=== PATIENT | female | born 2005 | race Caucasian/White ===

== ENCOUNTER 2023-09-12 08:55 | Emergency (ER) | payer BC, SELFPAY ==
[2023-09-12 09:00] VITALS: BP 115/67; PULSE 79; RESP 18; TEMP 36.1; O2SAT 98; BMI 21.6
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
[2023-09-12 09:34] VITALS: TEMP 36.6
[2023-09-12] MEDS: 0.9 % SODIUM CHLORIDE 1000 ml 1,000 ML IV (10:09)
[2023-09-12] MEDS: KETOROLAC 30 MG/ML inj IVP (10:10)
[2023-09-12 10:17] LABS: Basophils Percent Auto 0.5 % (0.0-3.0); Eosinophils Percent Auto 0.9 % (0.0-7.0); Hematocrit 41.1 % (33.0-51.0); Hemoglobin* 13.9 gm/dL (12.0-16.0); Lymphocytes Percent Auto 36.7 % (20-44); Mean Corpuscular HGB Conc 34 gm/dL (32-36); Mean Corpuscular Hemoglobin 31 pg (26-34); Mean Corpuscular Volume 92 fL (80-100); Monocytes Percent Auto 5.9 % (0.0-11.0); Platelet Count* 266 K/uL (140-440); RDW Coefficient of Variation % 12.7 % (11.5-15.5); Red Blood Count 4.49 m/uL (4.00-5.20); White Blood Count* 4.41 K/uL (4.50-11.00)
[2023-09-12 10:32] LABS: Albumin* 4.8 g/dL (3.3-5.0)
[2023-09-12 10:33] LABS: Chloride* 99 mmol/L (96-114); Sodium* 140 mmol/L (135-149)
[2023-09-12 10:35] LABS: Anion Gap 17 mEq/L (7-15); Aspartate Amino Transferase* 41 U/L (12-35); Bilirubin Total* 0.4 mg/dL (0.1-1.5); Blood Urea Nitrogen* 19 mg/dL (5-24); Carbon Dioxide* 24 mmol/L (20-32); Creatinine* 0.6 mg/dL (0.6-1.2); Estimated Glomerular Filt Rate 133 ml/min; Total Protein* 7.9 g/dL (6.0-8.3)
[2023-09-12 10:36] LABS: Alanine Aminotransferase* 34 U/L (4-35); Alkaline Phosphatase* 91 U/L (40-150); Calcium* 9.4 mg/dL (8.7-10.8); Glucose* 90 mg/dL (60-115)
[2023-09-12 10:38] LABS: Slide Review Reflex No
[2023-09-12] MEDS: MAG HYDROX/ALUMINUM HYD/SIMETH 30 ML ORAL.SUSP PO (10:53)
[2023-09-12] MEDS: LORazepam 2 MG/ML inj 0.5 MG IVP (10:54)
[2023-09-12 11:26] VITALS: BP 136/93; PULSE 74; RESP 16; TEMP 36.4; O2SAT 98
== END 2023-09-12 11:42 | disposition home or self-care (01) ==
PROVIDERS: Emergency Provider Family Medicine
DX: R20.1 Hypoesthesia of skin (principal)
CPT/HCPCS: 36415; 80048; 80076; 85025; 96374; 96375; 99284; A9270; J1885; J2060; J7030

== ENCOUNTER 2024-11-16 22:48 | Emergency (ER) | payer BC, SELFPAY ==
--- OUTSIDE RECORDS SUMMARY | 2024-11-16 22:50 | XMS_ITS | Clinical Summary ---
Author Organization [employer] [facility] lin Address [address] [place] [address] Care Team Providers Care Milk Route Deliverer Name Role Phone Francesca Colindres MD Primary Care Provider [phone] Allergies No known active allergies Medications promethazine (PHENERGAN) 25 MG tablet TAKE ONE TABLET BY MOUTH EVERY 6 HOURS 1 8 Active SUMAtriptan (IMITREX) 50 MG tablet TAKE 1 TABLET BY MOUTH, MAY REPEAT DOSE IN 2 HOURS NEEDED 3 8 Active lorazepam (ATIVAN) 0.5 MG tablet TAKE 1 TABLET BY MOUTH EVERY DAY NEEDED FOR SEVERE ANXIETY . MAY REPEAT IN 40 MINUTES IF INEFFECTIVE 1 9 Active valACYclovir (VALTREX) 500 MG tablet Take 500 mg by mouth. Active albuterol (VENTOLIN HFA) 90 mcg/actuation inhaler Inhale 90 mcg. Activ e FLOVENT HFA 110 mcg/actuation inhaler INHALE 2 PUFFS BY MOUTH TWO TIMES DAILY 1 9 Active VENTOLIN HFA 90 mcg/actuation inhaler INHALE 2 PUFFS BY MOUTH EVERY 4 HOURS NEEDED COUGH OR DIFFICULTY BREATHING 3 9 Active sertraline (ZOLOFT) 100 MG tablet TAKE 1/2 TABLET BY MOUTH EVERY DAY FOR 4 DAYS THEN TAKE 1 TABLET BY MOUTH EVERY DAY 4 9 Active Social History Tobacco Use Types Packs/Day Years Used Date Smoking Tobacco: Never Smokeless Tobacco: Never Comments No Sex and Gender Information Value Date Recorded Sex Assigned at Not on file Legal Sex Female 4:09 PM EDT Gender Identity Not on file Sexual Orientation Not on file Last Filed Vital Signs Vital Sign Reading Time Taken Comments Blood Pressure 90/60 05/18/2018 4:27 PM EDT Pulse 69 03/09/2019 6:17 PM EDT Temperature 36.2 C (97.1 F) 03/09/2019 6:17 PM EDT Respiratory Rate 14 03/09/2019 6:17 PM EDT Oxygen Saturation 98% 03/09/2019 6:17 PM EDT Inhaled Oxygen Concentration - - Weight 58.2 kg (128 lb 6.4 oz) 03/09/2019 6:17 P M EDT Height - - Body Mass Index - - Plan of Treatment Health Maintenance Due Date Last Done Comments Depression: Screening Annually using PHQ-2/9 in Adults 18 yrs or above (or HM Modifier)([facility]) 2021 Hepatitis C Virus Infection in Adolescents and Adults: Screening (or Modifier) ([facility]) 2021 SDOH Screening Reminder: Annually for all adults ([facility]) 2021 Tobacco Smoking Cessation: i n Adults excluding Women: Behavioral and Pharmacotherapy Interventions ([facility]) 2021 Lipid Screening: Once for Women aged 20 to 45 yrs ([facility]) 2023 Flu Vaccination: Yearly for ages 18mos through 64 years (or Modifier)([facility]) 06/10/2024 11/01/2016, 09/26/2015, 08/26/2009, Additional history exists COVID-19 Vaccine Screening: Initial Series and Booster Status ([facility]) ( - 2023- season) 2024 DTaP/Tdap/Td Vaccines ([facility]) (7 - Td or Tdap) 03/07/2025 03/07/2015, 11/17/2008, 02/19/2005, Additional history exists Zoster/Shingles Vaccine Series Screening: Adults aged 18+ yrs (or HM Modifiers)([facility]) (1 of 2) 2053 11/17/2008, 11/27/2004 Pneumococcal Vaccination Screening: Pts 0-19 & 19-64 yrs of age ([facility]) Aged Out 02/19/2005, 05/22/2004, 03/16/2004, Additional history exists No longer eligible based on patient's age to complete this topic Medical Devices Not on file Insurance [facility] Care Teams Milk Route Deliverer Relationship Specialty Start Date End Date Francesca Colindres MD [address] [place] [id number] PCP - General Adolescent Medicine 05/18/18
--- OUTSIDE RECORDS SUMMARY | 2024-11-16 22:50 | XMS_ITS | Continuity of Care Document ---
Author Name [facility] User [email or web address] Address Unknown Organization Unknown Address Unknown Procedures FILTER APPLIED:Only known Procedures with Onset Date within the last 5 years Procedure Date Procedure Provider Additiona l Information Status ROUTINE VENIPUNCTURE (85258) Completed METABOLIC PANEL TOTAL CA (54689) Completed HEPATIC FUNCTION PANEL (20765) Completed EMERGENCY DEPT VISIT MOD MDM (35448) Completed THER/PROPH/DIAG INJ IV PUSH (47630) Completed TX/PRO/DX INJ NEW DRUG ADDON (56779) Completed COMPLETE CBC W/AUTO DIFF WBC (75010) Completed Encounters FILTER APPLIED:Only known Encounters with Admission Date within the last 5 years Encounter Location Admission Discharge Billing Code Party Plan Sales Consultant Severino [facility] N[facility]stor Haynes
--- OUTSIDE RECORDS SUMMARY | 2024-11-16 22:51 | XMS_ITS | Clinical Summary ---
Author Organization [facility] Address [place], [place] [address] Care Team Providers Care Healthcare Advisory Services Manager Name Role Phone Pcp, No Primary Care Provider Unavailabl e Allergies Active Allergy Reactions Criticality Noted Date Comments Shellfish Derived Vomiting 03/19/2023 Medications dextroamphetami ne-amphetamine (ADDERALL XR) 30 mg Extended-Releas e capsule Take 30 mg by mouth. 4 Active DULoxetine (CYMBALTA) 60 mg Delayed-release capsule Take 60 mg by mouth once daily. 4 Active Advair Diskus 250-50 mcg/dose diskus inhaler INHALE ONE PUFF BY MOUTH TWICE A DAY. RINSE MOUTH AFTER USE. 3 Active albuterol HFA (PRO-AIR; VENTOLIN; PROVENTIL) 90 mcg/actuation inhaler INHALE 1-2 PUFFS BY MOUTH EVERY 4 TO 6 HOURS NEEDED FOR ASTHMA DURING FLARES 3 Active methylPREDNISol one (MEDROL DOSEPAK) 4 mg tabletIndicatio ns:Spasm of thoracic back muscle Take by mouth as instructed per packaging: take all tablets together with breakfast. 21 Tablet 4 Active tiZANidine (ZANAFLEX) 4 mg tabletIndicatio ns:Spasm of thoracic back muscle Take 1 Tablet (4 mg) by mouth every 6 hours if needed for Muscle Spasm. 10 Tablet 4 Active Active Problems No known active problems Immunizations Name Administration Dates Next Due DTaP 11/17/2008, 5,05/22/2004,03/16,01/18/2004 HPV 9 (Gardasil 9) 02/08/2016,12/05/2015 Hepatitis A (Peds) 12/25/2016,12/05/2015 Hepatitis B (Peds) 08/23/2007, 4,2003,11/16 Inactivated Polio Vaccine 11/17/2008,,03/16/2004,01/17 Influenza, IIV4 07/30/2022 MMR 11/17/2008,11/27/2004 Meningococcal Vaccine (Menactra) 03/07/2015 Pneumococcal conj 7-Valent (Prevnar 7) 0 02/19/2005,05/22/2004,03/16/2004,01/17 Tdap 03/07/2015 Varicella Vaccine 11/17/2008,11/27/2004 Social History Tobacco Use Types Packs/Day Years Used Date Smoking Tobacco: Some Days Cigarettes 0.1 4 Started: 2020 Tobacco Cessation:Ready to Q uit: Not Asked; Counseling Given: Not Answered Comments:Smokes cigarettes and vapes once a week for 2 years. Angy Aldrich RN ............................ 03/19/2023 8:16 AM Social Connections Answer Date Recorded Frequency of Communication with Friends and Fami ly Not on file 03/19/2023 Comments No Sex and Gender Information Value Date Recorded Sex Assigned at Not on file Legal Sex Female 10:45 AM CDT Gender Identity Not on file Sexual Orientation Not on file Obstetrics History Para Term AB IAB SAB Ectopic Multiple Livin g Live Births 0 0 0 0 0 0 0 0 0 0 0 Last Filed Vital Signs Vital Sign Reading Time Taken Comments Blood Pressure 111/75 12/30/2023 2:04 PM ENDLESS TRACK VEHICLE MECHANIC Pulse 72 12/30/2023 2:04 PM ENDLESS TRACK VEHICLE MECHANIC Temperature 36.8 C (98.2 F) 12/30/2023 2:04 PM ENDLESS TRACK VEHICLE MECHANIC Respiratory Rate - - Oxygen Saturation 100% 12/30/2023 2:04 PM ENDLESS TRACK VEHICLE MECHANIC Inhaled Oxygen Concentration - - Weight 57.4 kg (126 lb 9.6 oz) 12/30/2023 2:04 P M ENDLESS TRACK VEHICLE MECHANIC Height 166 cm (5' 5.35) 03/19/2023 8:17 AM CDT Body Mass Index - - Plan of Treatment Health Maintenance Due Date Last Done Comments Well Child Check for age 3-20 10/15/2006 Pneumococcal series for age 6-49 (1 of 2 - PCV) 2009 02/19/2005, 05/22/2004, 03/16/2004, Additional history exists Depression screening for age 12+ 2015 HPV series for age 9-26 (3 - 2-dose series) 06/04/2016 02/08/2016, 12/05/2015 HIV for age 15-65 2018 Chlamydia for age 16-24 2019 Hepatitis C screening for age 18-79 2021 BMI (ht and wt on same day) for age 18+ 03/19/2024 03/19/2023 COVID-19 vaccine series ( season) 2024 Influenza for age 9-49 07/11/2024 07/30/2022 Tetanus booster 03/07/2025 03/07/2015 Meningococcal series for age 11-21 Aged Out 03/07/2015 No longer eligible based on patient's age to complete this topic Tdap Completed 03/07/2015 Insurance [facility] [place] [phone] Care Teams Healthcare Advisory Services Manager Relationship Specialty Start Date End Date Pcp, No . PCP - General 08/15/22
[2024-11-16 22:55] VITALS: BP 131/87; PULSE 84; RESP 18; TEMP 37.3; O2SAT 100; BMI 22.3
--- NOTE | 2024-11-16 23:57 | ED_ITS ---
HPI - Arrhythmia/Palpitations General Chief Complaint: Arrhythmia/Palpitations Stated Complaint: High heartrate, chest pain, took propranolol Time Seen by Provider: 11/16/24 23:09 History of Present Illness HPI narrative: This 19-year-old female comes in reporting palpitations and thinking that her heart rate was going fast. She does take Adderall and typically does have some tachycardia with that and usually takes propranolol to attend of those symptoms. Today it seemed worse with her symptoms and she also had some chest discomfort. She states that she has increased pain in her anterior chest when taking a deep breath. She does not report any recent injury event or strenuous activity. There is no report of nausea, vomiting, lightheadedness, shortness of breath, or diaphoresis. Related Data Home Medications ?Medication ?Instructions ?Recorded ?Confirmed Ativan 09/12/23 acyclovir 500mg 09/12/23 dextroamphetamine-amphetamine ER 30 mg PO DAILY 09/12/23 11/16/24 30 mg 24hr capsule,extend release (Adderall XR) montelukast 10 mg tablet 10 mg PO DAILY 09/12/23 11/16/24 (Singulair) duloxetine 30 mg capsule,delayed 30 mg PO DAILY 11/16/24 11/16/24 release (Cymbalta) propranolol 10 mg tablet 10 mg PO Q12H 11/16/24 11/16/24 Previous Rx's ?Medication ?Instructions ?Recorded lorazepam 1 mg tablet 0.5 - 1 mg (0.5 - 1 x 1 mg) PO TID 09/12/23 PRN #10 tabs Allergies Allergy/AdvReac Type Severity Reaction Status Date / Time shellfish Allergy Intermediate Abdominal Uncoded 09/12/23 09:08 Pain Review of Systems Status of ROS: Reports: 10 or more systems reviewed and unremarkable except as noted in History and below Narrative: Constitutional: No fevers, no weight gain or loss. Eyes: No discharge. No vision changes. HENT: No congestion, no sore throat, no ear pain. Cardiovascular: No palpitations. Respiratory: No shortness of breath, no wheezes, no cough. Gastrointestinal: No abdominal pain, no vomiting, no diarrhea. Genitourinary: No dysuria, no hematuria. Musculoskeletal: Normal range of motion. Skin: No rashes, no pruritis. Neurological: No dizziness, weakness, sensory change, speech change. Endo/Heme/Allergies: No bruising or bleeding. No polydipsia. Pysch: no suicidality, no anxiety, no insomnia. All other systems reviewed and are negative. [facility] Social History Smoking Status: Never smoker How often do you have a drink containing alcohol: never AUDIT-C Alcohol total score: 0 Non-prescribed substance use: denies use service: No Exam Narrative: Exam Narrative: Constitutional: Well-developed, well-nourished, no acute distress. HEENT: Normocephalic, atraumatic. Neck: Normal range of motion. Nontender. Supple. Heart: Regular. No murmurs. Normal rate. Intact distal pulses. Lungs: Clear to auscultation. No chest discomfort. No wheezes, rhonchi, or rales. Abdomen: Normal bowel sounds. Nontender. No rebound tenderness. Genitalia: Deferred. Back: No midline tenderness. Normal range of motion. Extremities: Normal range of motion. No injury. Skin: Intact. No rash. Warm. No erythema or pallor. Neurologic: No altered sensation. No weakness. Alert and oriented. Psychiatric: No suicidality. No anxiety or depression. No insomnia. Nursing notes and vitals signs are reviewed. Const: Vital Signs, click to edit/add: Vital Signs - 24 hr 11/16/24 22:55 Temperature 99.1 F Pulse Rate [Pulse Oximeter] 84 Respiratory Rate 18 Blood Pressure [Ri ght Upper Arm] 131/87 Pulse Oximetry 100 Oxygen Delivery Me thod Room Air Course Vital Signs Vital signs: Initial Vital Signs Temperature 99.1 F 11/16/24 22:55 Temperature Source Temporal Artery Scan 11/16/24 22:55 Pulse Rate 84 11/16/24 22:55 Pulse Rhythm Regular 11/16/24 22:55 Respiratory Rate 18 11/16/24 22:55 Blood Pressure 131/87 11/16/24 22:55 Blood Pressure Mean 101 11/16/24 22:55 Pulse Oximetry 100 11/16/24 22:55 Oxygen Delivery Method Room Air 11/16/24 22:55 Vital Signs Temperature 99.1 F 11/16/24 22:55 Pulse Rate 84 11/16/24 22:55 Respiratory Rate 18 11/16/24 22:55 Blood Pressure 131/87 11/16/24 22:55 Pulse Oximetry 100 11/16/24 22:55 Oxygen Delivery Method Room Air 11/16/24 22:55 Temperature 99.1 F 11/16/24 22:55 Pulse Rate 84 11/16/24 22:55 Respiratory Rate 18 11/16/24 22:55 Blood Pressure 131/87 11/16/24 22:55 Pulse Oximetry 100 11/16/24 22:55 Oxygen Delivery Method Room Air 11/16/24 22:55 MDM - Arrhythmia/Palpitations MDM Narrative Medical decision making narrative: This patient comes in reporting tachycardia however she arrives here with normal sinus rhythm. She also had some chest discomfort that is reproduced when taking a deep breath. She does not report any cough or injury event. She did request ultrasound as her mother is a nurse practitioner who mentioned that she might have a spontaneous pneumothorax. I did use bedside ultrasound to see normal pleura on ultrasound exam. Her symptoms are not all suspicious of pneumothorax. Additionally I obtained views of her heart which were reassuring to her. EKG is also normal. The patient is sufficiently reassured and okay to return home. ECG Data Attestation: I personally reviewed and interpreted this ECG as follows: Interpretation: Normal sinus rhythm. Rate is 82 beats per minute. There are no ST or T-wave abnormalities. Discharge Plan Discharge Clinical Impression: Acute chest wall pain Patient Disposition: Home, Self-Care Condition: Stable Additional Instructions: Use [id number] medicines as needed and directed. Follow up with MD return if worsening. Prescriptions: No Action duloxetine [Cymbalta] 30 mg capsule,delayed release(DR/EC) 30 mg PO DAILY propranolol 10 mg tablet 10 mg PO Q12H montelukast [Singulair] 10 mg tablet 10 mg PO DAILY acyclovir 500mg 500 mg dextroamphetamine-amphetamine [Adderall XR] 30 mg capsule,extended release 24hr 30 mg PO DAILY Ativan 0.5 mg Patient Comments: PRN lorazepam 1 mg tablet 0.5 - 1 mg PO TID PRNQty: 10 0RF Follow Up/Referrals: Provider,Not a Local [Primary Care Provider] - Stand Alone [facility]: [facility] Instructions Procedures Ultrasound Other exam #1: Anatomical areas examined: Heart and lungs Indications: Chest discomfort Exam type: focused emergency ultrasound Description/findings: Normal lungs with no sign of pneumothorax. Sternum and ribs are intact. Heart shows normal rate and rhythm with no abnormalities. Impression: Negative exam.
[2024-11-17 00:18] VITALS: BP 117/84; PULSE 75; RESP 17; O2SAT 99
== END 2024-11-17 00:32 | disposition home or self-care (01) ==
PROVIDERS: Emergency Provider Emergency Medicine Emergency Medical Services
DX: R07.89 Other chest pain (principal)
CPT/HCPCS: 76604; 76705; 93005; 93308; 99284

== ENCOUNTER 2025-01-19 16:09 | Emergency (ER) | payer BC, SELFPAY ==
--- OUTSIDE RECORDS SUMMARY | 2025-01-19 16:11 | XMS_ITS | Clinical Summary ---
Author Organization [facility] Address [address] [place] [address] Phone Care Team Providers Care Deli Clerk Name Role Phone Francesca Colindres MD Unavailable [phone] Francesca Colindres MD Primary Care Provider [phone] Francesca Colindres MD Unavailable [phone] Allergies Active Allergy Reactions Criticality Noted Date Comments Shellfish Derived Vomiting 11/25/2024 Medications * This document contains information received from the source organization and may not represent a complete record from that organization. EPINEPHrine (EpiPen) 0.3 mg/0.3 mL injection Dose: 0.3 mg, IM, As Directed, PRN Anaphylaxis, Special Instructions: inject into thigh and call 911, Dispense Quantity: 1 EA, Refills: 1, Entered: 05/28/23 14:35:00 EDT, [id number] 3 Active fluticasone (Flovent HFA) 110 mcg/actuation inhaler Dose Amount: 2 puff, INH, BID, Dispense Quantity: 1 EA, Entered: 06/27/23 18:30:00 EDT, [facility] 3 Active levonorgestrel (Mirena) 52 mg (8 yrs) IUD mg, EA, Intrauteral, 1time, Entered: 10/26/19 19:47:46 EST, 59.3 9 Active LORazepam (Ativan) 0.5 mg tablet See Instructions, Special Instructions: 1 tab PO prn anxiety attack, Entered: 12/31/17 11:52:44 EST 8 Active naloxone (Narcan) 4 mg/0.1 mL nasal spray Dose: 4 mg, Nasal, 1time, Special Instructions: may repeat every 2 to 3 minutes until patient responds, Dispense Quantity: 2 EA, Refills: 0, Entered: 05/28/23 14:33:00 EDT, [id number] 3 Active promethazine (Phenergan) 25 mg tablet Dose: 25 mg, Dose Amount: 1 tab, PO, Q6hr, PRN as needed for nausea/vomiting , Dispense Quantity: 30 tab, Refills: 0, Entered: 03/14/23 11:10:00 EDT, [id number] 3 Active SUMAtriptan (Imitrex) 50 mg tablet See Instructions, PRN migraine, Special Instructions: 1 tab PO, may repeat dose in 2 hours if needed, Dispense Quantity: 18 tab, Refills: 0, Entered: 04/10/23 14:49:00 EDT, [id number] 3 Active fluticasone 50 mcg/spray nasal sprayIndication s:Medication management Administer 1 spray into each nostril 2 times a day. Shake gently. Before first use, prime pump. After use, clean tip and replace cap. 16 g 5 Active valACYclovir 500 mg tabletIndicatio ns:Medication management Take 500 mg = 1 tablet by mouth 1 time each day. 90 tablet 5 02/24/20 25 Active Encounters * This document contains information received from the source organization and may not represent a complete record from that organization. Date Type Department Care Team Description 01/03/2025 Telephone [facility] Met[facility] [address] [place] [address] Amy Simeon, [facility] Referral triage 12/14/2024 3:15 PM EST Telemedicine [facility] [address] [place] [address] Delmy Hahn MD, DMD Impacted third molar tooth (Primary Dx) from Last 3 Months Immunizations Immunization Administration Dates Next Due DTaP 11/17/2008, 5,05/22/2004,03/16,01/18/2004 HPV, Unspecified 07/08/2018,02/08/2016, 6 Hep A, Unspecified 12/25/2016,12/05/2015 Hep B, Adolescent or Pediatric 2003 Hep B, Unspecified 08/23/2004,2003 HiB, unspecified 02/19/2005, 4,03/16/2004,01/17,2003,2003 IPV 11/17/2008, 4,03/17/2004,03/16,01/18/2004 Influenza, Unspecified 10/15/2021,2019,08/25/2019,09/10,09/10/2018,08/16/2018,11/01/2016 ,10/21/2016,09/26/2015,08/20/2012,08/10,09/19/2008,08/24/2007, 6,08/31/2005 MMR 11/17/2008,11/17/2004 Meningococcal ACWY, unspecified 03/06/2022,03/07 Meningococcal B, Unspecified 06/14/2022,03/06/20 22 Moderna SARS-CoV-2 Bivalent Booster 12+ 11/04/2022 Novel [id number] 08/26/2009 Pfizer Purple Cap SARS-CoV-2 10/19/2021,02/16/20 21,01/25/2021 Pneumococcal Conjugate PCV 13 02/19/2005 ,05/22/2004,03/16/2004,01/17 Tdap 03/07/2015 Varicella 11/17/2008,11/27/2004 Social History Tobacco Use Types Packs/Day Years Used Date Smoking Tobacco: Never Assessed Comments Unknown Sex and Gender Information Value Date Recorded Sex Assigned at Not on file Legal Sex Female 8:20 PM EDT Gender Identity Not on file Sexual Orientation Not on file Last Filed Vital Signs Vital Sign Reading Time Taken Comments Blood Pressure 121/76 06/27/2023 5:48 PM EDT Pulse 86 06/27/2023 5:48 PM EDT Temperature - - Respiratory Rate - - Oxygen Saturation 99% 06/27/2023 5:48 PM EDT Inhaled Oxygen Concentration - - Weight 53.4 kg (117 lb 11.6 oz) 05/28/2023 2:08 PM EDT Height 166.3 cm (5' 5.47) 05/28/2023 2:08 PM ED T Body Mass Index 19.31 05/28/2023 2:08 PM EDT Plan of Treatment Health Maintenance Due Date Last Done Comments Varicella Vaccines (2 of 2 - 2-dose childhood series) 02/09/2009 11/17/2008, 11/27/2004 Hepatitis C Screening 2021 COVID-19 Vaccine ( season) 2024 11/04/2022, 10/19/2021, 02/15/2021, Additional history exists Influenza Vaccine (#1) 2024 , 10/15/2021, 08/21/2020, Additional history exists DTaP/Tdap/Td Vaccines (7 - Td or Tdap) 03/07/2025 03/07/2015, 11/17/2008, 02/19/2005, Additional history exists HIB Vaccines Completed 02/19/2005, 05/10, 03/16/2004, Additional history exists Pneumococcal Vaccine: Pediatrics (0 to 5 Years) and At-Risk Patients (6 to 49 Years) Completed 02/19/2005, 02/19/2005, 05/22/2004, Additional history exists Hepatitis B Vaccines Completed 08/23/2007, 08/23/2004, 2003, Additional history exists IPV Vaccines Completed 11/17/2008, 08/10, 03/17/2004, Additional history exists MMR Vaccines Completed 11/17/2008, 11/17/2004 Hepatitis A Vaccines Completed 12/25/2016, 12/05/19 16 HPV Vaccines Completed 07/08/2018, 01/10, 12/05/2015 Meningococcal Vaccine Completed 03/06/2022 , 03/06/2022, 03/07/2015, Additional history exists HIV Screening Completed 05/22/2023, 06/14/2022 Rotavirus Vaccines Aged Out No longer eligible based on patient's age to complete this topic Procedures Procedure Name Priority Date/Time Associated Diagnosis Comments RAPID HIV 1 AND 2 SCREEN Routine 05/22/2023 7:36 PM EDT from Last 3 Months or Most Recently Relevant to Health Maintenance Results * HIV-1/2 Combo Ag/Ab w/ Reflex Confirmation (05/22/2023 7:36 PM EDT) HIV-1/2 Combo Antigen/Antibo dy Non-reacti ve [facility] 05/22/2023 7:36 PM EDT 05/22/2023 7:51 PM EDT us Giselle Torres MD LAB BLOOD ORDERABLES Final Result [facility] [address] [place] [address], from Last 3 Months or Most Recently Relevant to Health Maintenance Insurance [employer] - [facility] [place] [id number] [employer] [place] Care Teams Deli Clerk Relationship Specialty Start Date End Date Francesca Colindres MD [address] [place] [address] PCP - Insurance PCP 03/03/18 Francesca Colindres MD [address] [place] [address] PCP - General 02/24/18 Francesca Colindres MD [address] [place] [address] PCP - Insurance Identified PCP 05/07/24
--- OUTSIDE RECORDS SUMMARY | 2025-01-19 16:11 | XMS_ITS | Clinical Summary ---
Author Organization [email or web address] [facility] Address [address] [place] [address] Care Team Providers Care Auditing Coder Name Role Phone Francesca Colindres MD Primary Care Provider [phone] Allergies No known active allergies Medications promethazine [...] Adults 18 yrs or above (or HM Modifier)([facility]) 2021 Hepatitis C Virus Infection in Adolescents and Adults: Screening (or Modifier) ([facility]) 2021 SDOH Screening Reminder: Annually for all adults ([facility]) 2021 Tobacco Smoking Cessation: i n Adults excluding Women: Behavioral and Pharmacotherapy Interventions ([facility]) 2021 Lipid Screening: Once for Women aged 20 to 45 yrs ([facility]) 2023 Flu Vaccination: Yearly for ages 18mos through 64 years (or Modifier)([facility]) 06/10/2024 11/01/2016, 09/26/2015, 08/26/2009, Additional history exists COVID-19 Vaccine Screening: Initial Series and Booster Status ([facility]) (2023- season) 2024 Cervical Cancer Screenin-65 yrs of age (or Modifier) 2024 Cervical Cancer Screening: Pap every 3 yrs pts age 21-65 2024 Cervical Cancer: Pap Screening with Modifier timing ([facility]) 2024 Cervical Cancer: hrHPV alone or with cotesting Pap for Pts 30-65yrs screening every 5yrs ([facility]) 2024 DTaP/Tdap/Td Vaccines ([facility]) (7 - Td or Tdap) 03/07/2025 03/07/2015, 11/17/2008, 02/19/2005, Additional history exists Zoster/Shingles Vaccine Series Screening: Adults aged 18+ yrs (or HM Modifiers)([facility]) (1 of 2) 2053 11/17/2008, 11/27/2004 Pneumococcal Vaccination Screening: Pts 0-19 & 19-64 yrs of age ([facility]) Aged Out 02/19/2005, 05/22/2004, 03/16/2004, Additional history exists No longer eligible based on patient's age to complete this topic [employer] [id number] [facility] Care Teams Auditing Coder Relationship Specialty Start Date End Date Francesca Colindres MD [address] [place] [address] PCP - General Adolescent Medicine 05/18/18
--- OUTSIDE RECORDS SUMMARY | 2025-01-19 16:11 | XMS_ITS | Clinical Summary ---
Author Organization [facility] Address [address] [place] [address] Phone Care Team Providers Care Shrub Grower Name Role Phone Marine Constantino MD, PhD Unavailable [phone] Francesca Colindres MD Primary Care Provi steve Allergies Active Allergy Reactions Criticality Noted Date Comments Latex, Natural Rubber 02/02/2021 Shellfish Containing Products 2018 Medications Medication Sig Dispensed Refills Start Date End Date Status MULTIVITAMIN ORAL Take by mouth. Act agueda albuterol (VENTOLIN HFA) 90 mcg/actuation inhaler INHALE 2 PUFFS BY MOUTH EVERY 4 HOURS NEEDED COUGH OR DIFFICULTY BREATHING 01/28/2019 Active fluticasone propionate (FLOVENT HFA) 110 mcg/actuation inhaler INHALE 2 PUFFS BY MOUTH TWO TIMES DAILY 02/12/2019 Active LORazepam (ATIVAN) 0.5 MG tablet TAKE 1 TABLET BY MOUTH EVERY DAY NEEDED FOR SEVERE ANXIETY . MAY REPEAT IN 40 MINUTES IF INEFFECTIVE 02/20/2019 Active promethazine (PHENERGAN) 25 MG tablet TAKE ONE TABLET BY MOUTH EVERY 6 HOURS 04/22/2018 Active SUMAtriptan (IMITREX) 50 MG tablet TAKE 1 TABLET BY MOUTH, MAY REPEAT DOSE IN 2 HOURS NEEDED 04/22/2018 Active valACYclovir (VALTREX) 500 MG tablet Take 500 mg by mouth. Active venlafaxine (EFFEXOR) 100 MG tablet Take 125 mg by mouth daily. Active sertraline (ZOLOFT) 100 MG tablet Take 200 mg by mouth daily. 01/16/2021 Active Active Problems Problem Noted Date Diagnosed Date Migraine with aura 02/10/2022 Herpes labialis 02/10/2022 History of panic attacks 01/30/2018 Overview (02/10/2022): Followed by Hortencia Castro, PhD and Brittany Gill MD, per GI note (12/2017). Jena Alejandro for panic attacks. Family history of von Willebrand disease 016 Overview (02/10/2022): Mom: von Willebrand disease diagnosed at 18y, heavy menses, easy bruises, blood type O Exercise-induced asthma 12/05/2015 Hypermetropia, 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 Family History Medical History Relation Comments Hypertension Mother Blindness Neg Hx Glaucoma Neg Hx Macular degeneration Neg Hx Relation Status Comments Mother Social History Tobacco Use Types Packs/Day Years Used Date Smoking Tobacco: Never Smokeless Tobacco: Never Alcohol Use Standard Drinks/Week Comments Yes 0 (1 standard drink = 0.6 oz pur e alcohol) 4-5 shots per week Education Answer Date Recorded Are you interested in more education? Not on landy e 03/07/2023 Are you concerned about learning? Not on file 03/07/2023 No 03/07/2023 No 03/07/2023 Digital Access Answer Date Recorded No 04/06/2023 No 04/06/2023 No 04/06/2023 Reliable internet access at home? Not on file 04/06/2023 Device with a working camera? Not on file Sex and Gender Information Value Date Recorded Sex Assigned at Female 01/12/2020 12:11 AM EST Gender Identity Female 01/12/2020 12:11 AM EST Sexual Orientation Bisexual 01/12/2020 12 :11 AM EST Last Filed Vital Signs Vital Sign Reading Time Taken Comments Blood Pressure 102/64 02/10/2022 2:40 PM EDT Pulse 77 02/10/2022 2:40 PM EDT Temperature 36.4 C (97.6 F) 02/10/2022 2:40 PM EDT Respiratory Rate 18 01/12/2020 10:19 PM EST Oxygen Saturation 97% 02/10/2022 2:40 PM EDT Inhaled Oxygen Concentration - - Weight 61.2 kg (135 lb) 02/02/2021 8:31 PM EDT Height 165.1 cm (5' 5) 02/02/2021 8:31 PM EDT Body Mass Index 22.47 02/02/2021 8:31 PM EDT Plan of Treatment Health Maintenance Due Date Last Done Comments PEDIATRIC ASTHMA CONTROL TEST (ACT) 2007 PNEUMOCOCCAL VACCINES (0-49 years) (1 of 1 - PPSV23) 2009 02/19/2005, 05/22/2004, 03/16/2004, Additional history exists DEPRESSION SCREENING 2015 SMOKING Hx and SMOKELESS TOBACCO SCREENING 2016 CHLAMYDIA SCREENING 2019 ADOLESCENT UNIVERSAL LIPID SCREENING 2020 HEPATITIS C SCREENING 2021 HIV ONE-TIME SCREENING (18-65 YEARS) 2021 INFLUENZA VACCINE (#1) 2024 , 08/21/2020, 08/25/2019, Additional history exists COVID-19 VACCINE ( season) 2024 10/19/2021, 02/15/2021, 01/25/2021 PAP SMEAR 2024 Adult Td,Tdap Booster 03/07/2025 03/07/2015 COMBINED DTaP,Tdap,Td (7 - Td or Tdap) 03/07/2025 03/07/2015, 11/17/2008, 02/19/2005, Additional history exists HIB VACCINES Completed 02/19/2005, 05/10, 03/16/2004, Additional history exists MMR VACCINES Completed 11/17/2008, 11/27/2004 MENINGOCOCCAL VACCINES (ACWY) Aged Out 03/07/2015 No longer eligible based on patient's age to complete this topic HEPATITIS A VACCINES Completed 12/25/2016, 12/05/19 16 HPV VACCINES Completed 07/08/2018, 01/10, 12/05/2015 Medical Devices Not on file Care Teams Shrub Grower Relationship Specialty Start Date End Date Francesca Colindres MD [address] [place] [phone] PCP - General Adolescent Medicine 04/01/19 Marine Constantino MD, PhD [email or web address] 12/03/13 Additional Source Comments The information contained in this document represents components of the legal health record. It is not the complete legal health record.[facility]
--- OUTSIDE RECORDS SUMMARY | 2025-01-19 16:12 | XMS_ITS | Encounter Summary ---
Author Organization [facility] Address [address] [place] [phone] Phone Care Team Providers Care Reactor Operator Name Role Phone Emanuel Aragon MD Primary Care Provider [phone] Encounter Details Date Type Department Care Team (Late st Contact Info) Description 06/18/2017 Conversion Encounter Drs. Alexander Bradley [address] [place] [address], [facility] [address] [place] [address] Emanuel Aragon MD [address] [place] [address] [address] [place] [address] Social History Tobacco Use Types Packs/Day Years Used Date Smoking Tobacco: Never Assessed Comments Unknown Sex and Gender Information Value Date Recorded Sex Assigned at Not on file Legal Sex Female 12:44 PM EST Gender Identity Not on file Sexual Orientation Not on file documented as of this encounter Plan of Treatment Not on file documented as of this encounter Visit Diagnoses Not on filedocumented in this encounter Care Teams Reactor Operator Relationship Specialty Start Date End Date Emanuel Aragon MD [address] [place] [address] [address] [place] [address] PCP - General 05/24/17 12/21/20 documented as of this encounter
--- OUTSIDE RECORDS SUMMARY | 2025-01-19 16:12 | XMS_ITS | Clinical Summary ---
Author Organization [facility] Address [address] [place] [address] Care Team Providers Care Security Sales Consultant Name Role Phone Pcp, No Primary Care [...] Active Problems No known active problems Immunizations Immunization Administration Dates Next Due DTaP 11/17/2008, 5,05/22/2004,03/16,01/18/2004 HPV 9 (Gardasil 9) 02/08/2016,12/05/2015 Hepatitis A (Peds) 12/25/2016,12/05/2015 Hepatitis B (Peds) 08/23/2007, 4,2003,11/16 Inactivated Polio Vaccine 11/17/2008,,03/16/2004,01/17 Influenza, IIV4 07/30/2022 MMR 11/17/2008,11/27/2004 Meningococcal Vaccine (Menactra) 03/07/2015 Pneumococcal conj 7-Valent (Prevnar 7) 0 02/19/2005,05/22/2004,03/16/2004,01/17 Tdap 03/07/2015 Varicella Vaccine 11/17/2008,11/27/2004 Social History Tobacco Use Types Packs/Day Years Used Date Smoking Tobacco: Some Days Cigarettes 0.1 4.2 Started: 2020 Tobacco Cessation:Ready to Q uit: [...] Comments Blood Pressure 111/75 12/30/2023 2:04 PM ZINC FURNACE CHARGER Pulse 72 12/30/2023 2:04 PM ZINC FURNACE CHARGER Temperature 36.8 C (98.2 F) 12/30/2023 2:04 PM ZINC FURNACE CHARGER Respiratory Rate - - Oxygen Saturation 100% 12/30/2023 2:04 PM ZINC FURNACE CHARGER Inhaled Oxygen Concentration - - Weight 57.4 kg (126 lb 9.6 oz) 12/30/2023 2:04 P M ZINC FURNACE CHARGER Height 166 cm (5' 5.35) 03/19/2023 8:17 AM CDT Body Mass Index - - Plan of Treatment Health Maintenance Due Date Last Done Comments Depression screening for age 12+ 2015 HPV series for age 9-26 (3 - 2-dose series) 06/04/2016 02/08/2016, 12/05/2015 HIV for age 15-65 2018 Chlamydia for age 16-24 2019 Hepatitis C screening for age 18-79 2021 Pneumococcal series for age 6-49 (1 of 2 - PCV) 2022 02/19/2005, 05/22/2004, 03/16/2004, Additional history exists BMI (ht and wt on same day) for age 18+ 03/19/2024 03/19/2023 COVID-19 vaccine series ( - 2023- season) 2024 Influenza Vaccine (#1) 2024 07/30/2022 Pap test for age 21-65 2024 Tetanus booster 03/07/2025 03/07/2015 Meningococcal series for age 11-21 Aged Out 03/07/2015 No longer eligible based on patient's age to complete this topic Tdap Completed 03/07/2015 Insurance [facility] Care Teams Security Sales Consultant Relationship Specialty Start Date End Date Pcp, No . PCP - General 08/15/22
--- OUTSIDE RECORDS SUMMARY | 2025-01-19 16:12 | XMS_ITS | Encounter Summary ---
Author Organization [facility] Address [address] [place] [address] Phone Care Team Providers Care Fibreglass Gun Hand Name Role Phone Emanuel Aragon MD Primary Care Provider Encounter Details Date Type Department Care Team (Late st Contact Info) Description 09/22/2017 Conversion Encounter Pediatrics at [facility] @ [address], [address] [place] [address] Marine Constantino MD [address] [facility] [address] [place] [address] Social History Tobacco Use Types Packs/Day Years [...] on filedocumented in this encounter Care Teams Fibreglass Gun Hand Relationship Specialty Start Date End Date Emanuel Aragon MD [address] [place] [address] [address] [place] [address] PCP - General 05/24/17 12/21/20 documented as of this encounter
--- OUTSIDE RECORDS SUMMARY | 2025-01-19 16:12 | XMS_ITS | Encounter Summary ---
Author Organization [facility] Address [address] [facility] [address] [place] [address] Phone Care Team Providers Care Tests Superintendent Name Role Phone Marine Constantino MD, PhD Unavailable [phone] Francesca Colindres MD Primary Care Pro[facility] Encounter Details Date Type Department Care Team ([facility] st Contact Info) Description 04/01/2019 Ophth Exam [facility] Emergency Department [address] [place] [address] Yuval Cool MD [address] [facility] [address] [place] [address] [email or web address] Social History Tobacco Use Types Packs/Day Years Used Date Smoking Tobacco: Never Smokeless Tobacco: Never Alcohol Use Standard Drinks/Week Comments Never 0 (1 standard drink = 0.6 oz pur e alcohol) Sex and Gender Information Value Date Recorded Sex Assigned at Female 01/12/2020 12:11 AM EST Gender Identity Female 01/12/2020 12:11 AM EST Sexual Orientation Bisexual 01/12/2020 12 :11 AM EST documented as of this encounter Plan of Treatment Not on file documented as of this encounter Visit Diagnoses Not on filedocumented in this encounter Additional Health Concerns Infection Onset Date Last Indicated Resolved Time CoV-Risk 02/10/2022 02/10/2022 02/21/2022 1:24 AM EDT documented as of this encounter Care Teams Tests Superintendent Relationship Specialty Start Date End Date Francesca Colindres MD [address] [place] [address] PCP - General Adolescent Medicine 04/01/19 Marine Constantino MD, PhD [email or web address] 12/03/13 documented as of this encounter Additional Source Comments The information contained in this document represents components of the legal health record. It is not the complete legal health record.[facility]
--- OUTSIDE RECORDS SUMMARY | 2025-01-19 16:12 | XMS_ITS | Encounter Summary ---
Author Organization [facility] Address [address] [place] [address] Phone Care Team Providers Care Solar Sales Rep Name Role Phone Francesca Colindres MD Unavailable [phone] Francesca Colindres MD Primary Care Provider [phone] Francesca Colindres MD Unavailable [phone] Reason for Visit * Reason Onset Date Comments Referral triage 01/03/2025 Encounter Details Date Type Department Care Team (Late st Contact Info) Description 01/03/2025 Telephone [facility] Genetics Metabolism [address] [place] [address] Amy Simeon CGC Referral triage Social History Tobacco Use Types Packs/Day Years Used Date Smoking Tobacco: Never Assessed Comments Unknown Sex and Gender Information Value Date Recorded Sex Assigned at Not on file Legal Sex Female 8:20 PM EDT Gender Identity Not on file Sexual Orientation Not on file documented as of this encounter Miscellaneous Notes * Telephone Encounter - Amy Simeon CGC - 01/03/2025 3:58 PM EST Left patient a voicemail on 12/31/24 inquiring about reason for Genetics referral as there is no faxed referral or information in [facility]. Needed to appropriately triage and schedule. Provided my call-back number. Amy Simeon MS, [facility] Licensed Genetic Counselor Division of Genetics & Genomics documented in this encounter Plan of Treatment Not on file documented as of this encounter Visit Diagnoses Not on filedocumented in this encounter Care Teams Solar Sales Rep Relationship Specialty Start Date End Date Francesca Colindres MD [address] [place] [address] PCP - Insurance PCP 03/03/18 Francesca Colindres MD [address] [place] [address] PCP - General 02/24/18 Francesca Colindres MD [address] [place] [address] PCP - Insurance Identified PCP 05/07/24 documented as of this encounter
--- OUTSIDE RECORDS SUMMARY | 2025-01-19 16:12 | XMS_ITS | Encounter Summary ---
Author Organization [facility] Address [address] [facility] [address] [place] [address] Phone Care Team Providers Care Manufacturers Service Representative Name Role Phone Marine Constantino MD, PhD Unavailable [phone] Francesca Colindres MD Primary Care Provi [facility] Encounter Details Date Type Department Care Team ([facility] st Contact Info) Description 04/05/2019 [facility] Encounter [facility] Emergency Department [address] [place] [address] Cuco Steve MD, MPH [address] [place] [address] [email or web address] Social History Tobacco Use Types Packs/Day Years [...] documented as of this encounter Care Teams Manufacturers Service Representative Relationship Specialty Start Date End Date Francesca Colindres MD [address] [place] [phone] PCP - General Adolescent Medicine 04/01/19 Marine Constantino MD, PhD [email or web address] 12/03/13 documented as of this encounter Additional Source Comments The information contained in this document represents components of the legal health record. It is not the complete legal health record.[facility]
--- OUTSIDE RECORDS SUMMARY | 2025-01-19 16:12 | XMS_ITS | Encounter Summary ---
Author Organization [facility] Address [address] [place] [address] Phone Care Team Providers Care Animal Assisted Therapist Name Role Phone Francesca Colindres MD Unavailable [phone] Francesca Colindres MD Primary Care Provider [phone] Francesca Colindres MD Unavailable [phone] Reason for Visit * Consultation (Routine) - Authorized Specialty Diagnoses / Procedures Referred By Dm duncan Referred To Contact Pediatric Plastic Surgery Referral ID Status Reason Start Date Expiration Date V isits Requested Visits Authorized [id number] Authorized 09/21/2024 09/21/2025 6 6 Encounter Details Date Type Department Care Team (Late st Contact Info) Description 12/14/2024 3:15 PM EST Telemedicine [facility] [address] [place] [phone] Delmy Hahn MD, DMD [address] [place] [address] Impacted third molar tooth (Primary Dx) Social History Tobacco Use Types Packs/Day Years Used Date Smoking Tobacco: Never Assessed Comments Unknown Sex and Gender Information Value Date Recorded Sex Assigned at Not on file Legal Sex Female 8:20 PM EDT Gender Identity Not on file Sexual Orientation Not on file documented as of this encounter Progress Notes * Flavia Elaine PA-C - 12/14/2024 3:15 PM EST TELEMEDICINE VISIT Bre Reece is a 19 y.o. female sent by Dr. Clifton for evaluation of her impacted third molars. She presents via telemedicine visit today. She reports 0 out of 10 pain on a pain scale and denies difficulty chewing, swallowing, breathing and opening. She is otherwise well. PAST MEDICAL HISTORY: Migraines, anxiety, depression, asthma (well controlled) PAST SURGICAL HISTORY: None MEDICATIONS: Current Outpatient Medications: EPINEPHrine (EpiPen) 0.3 mg/0.3 mL injection, Dose: 0.3 mg, IM, As Directed, PRN Anaphylaxis, Special Instructions: inject into thigh and call 911, Dispense Quantity: 1 EA, Refills: fluticasone (Flovent HFA) 110 mcg/actuation inhaler, Dose Amount: 2 puff, INH, BID, Dispense LORazepam (Ativan) 0.5 mg tablet, PRN PREVENTATIVE, never used: naloxone (Narcan) 4 mg/0.1 mL nasal spray, Dose: 4 mg, Nasal, 1time, Special Instructions: may repeat every 2 to 3 minutes until patient responds, Dispense Quantity: 2 EA, Refills: 0, Entered: 05/28/23 14:33:00 EDT, [id number], Disp: , Rfl: promethazine (Phenergan) 25 mg tablet, Dose: 25 mg, Dose Amount: 1 tab, PO, Q6hr, PRN as needed fornausea/vomiting SUMAtriptan (Imitrex) 50 mg tablet, See Instructions, PRN migraine, Special Instructions: 1 tab PO,may repeat dose in 2 hours if needed, Dispense Quantity: 18 tab, Refills: 0, Entered: 04/10/23 14:49:00 EDT, [id number], Disp: , Rfl: valACYclovir 500 mg tablet, Take 500 mg = 1 tablet by mouth 1 time each day Cymbalta 90mg daily Adderal EXT 40mg ALLERGIES: Allergies Allergen Reactions Shellfish Derived Vomiting FAMILY HISTORY: Non-contributory SOCIAL HISTORY: Denies tobacco and alcohol use. She is a student at [employer] studying [employer]. REVIEW OF SYSTEMS: She currently denies headache, fever, nausea, vomiting, abdominal pain, cough, wheezing, difficulty breathing. The remainder of the review of systems was negative for all systems. PHYSICAL EXAMINATION: This visit was conducted via telemedicine. On exam Bre Reece is a well-developed, well-nourished female in no apparent distress. She has no evidence of facial asymmetry or fullness and there are no masses or lesions of the skin of the face. Mouth opening is within normal limits. The remainder of the exam is deferred until Bre Reece can be evaluated in clinic. RADIOGRAPHIC EVALUATION: The panoramic radiograph shows the maxillary right third molar (#1) is impacted, the maxillary left third molar (#16) is impacted, the mandibular left third molar (#17) is impacted and the mandibular right third molar (#32) is impacted. There is no associated pathology. ASSESSMENT AND PLAN: A combination of [id number]-[id number] and xzu-pzvw-uy-face time was spent on reviewingthe patient's outside records, obtaining the patient history, counseling and educating the patient/family and documenting the patient's encounter. In addition, radiographs from their referring provider were reviewed with my interpretation described in the note above. We discussed the etiology, prognosis and treatment of the impacted third molars as well as the indications for extraction, the postoperative course and risks including pain, bleeding, infection, swelling, damage to adjacent teeth/bone/gums, numbness to the lower lip/chin/tongue, and oroantral fistula. We also discussed anesthesiaoptions and Bre Reece would like to proceed with extraction of teeth #1, 16, 17, and 32 with local anesthesia +/- nitrous oxide. She will contact the office to schedule at a convenient time. All oftheir questions were answered to their satisfaction. Flavia Elaine PA-C [facility] Department of Plastic and Oral Surgery I personally participated in the history and assessment and plan of this patient. I spent the majority of the visit discussing the treatment plan and associated risks and benefits with the patient and parent. All questions were answered. Flavia Elaine PA-C, wrote the above note and I have reviewed and modified it as necessary to reflect the appropriate findings, assessment, and plan. Delmy Hahn DMD, MD Oral Bshctmg-xy-Bolso [facility] Department of Plastic and Oral Surgery The visit took place via telehealth using video. I was located at [facility] or [facility]. The patient and/or guardian were located at home at the time of this encounter. Patient Consents: Virtual/Telehealth Consent Cosigned by Delmy Hahn MD, DMD at 12/15/2024 10:10 AM EST documented in this encounter Plan of Treatment Scheduled Orders Name Type Priority Associated Diagnoses Orde r Schedule PLS/ORLS In-Clinic Procedure Procedures Routine Impacted third molar tooth Expected: 12/14/2024 (Approximate), Expires: 12/14/2025 documented as of this encounter Visit Diagnoses Diagnosis Impacted third molar tooth- Primary Disturbances in tooth eruption documented in this encounter Care Teams Animal Assisted Therapist Relationship Specialty Start Date End Date Francesca Colindres MD [address] [place] [address] PCP - Insurance PCP 03/03/18 Francesca Colindres MD [address] [place] [address] PCP - General 02/24/18 Francesca Colindres MD [address] [place] [address] PCP - Insurance Identified PCP 05/07/24 documented as of this encounter
--- OUTSIDE RECORDS SUMMARY | 2025-01-19 16:12 | XMS_ITS | Clinical Summary ---
Author Organization [facility] Address [address] [place] [address] Phone Care Team Providers Care Mining Helper Name Role Phone Unavailable Primary Care Provider Unavailabl e Allergies No known active allergies Medications valACYclovir (VALTREX) 500 MG tablet Take 500 mg by mouth. Active albuterol HFA (VENTOLIN HFA) 108 (90 BASE) MCG/ACT inhaler Inhale 90 mcg. Active Active Problems Problem Noted Date Diagnosed Date Constipation 01/30/2018 Overview (01/30/2018): Gastroenterology. Cuate Leon MD, 12/31/2017. Consiptation, LLQ discomfort. Took iron for fatigue, no labs drawn. Feels chronically bloated. May represent IBS. Cleanout recommended with Miralax and bisacodyl. Baseline labs checked. Hgb 13.2 g/dL. Ferritin 35.7 ng/ml. T4, Free, 0.84 ng/dL. TSH 1.05 mcunit/ml. TTG IgA negative (normal total IgA). ESR 8. CRP normal. 25-OH Vit D 23.6 ng/ml Anxiety 01/30/2018 Overview (01/30/2018): Followed by Hortencia Castro, PhD and Brittany Gill MD, per GI note (12/2017). Lexapro, Ativan for panic attacks. History of panic attacks 01/30/2018 Overview (01/30/2018): Followed by Hortencia Castro, PhD and Brittany Gill MD, per GI note (12/2017). Lexapro, Ativan for panic attacks. Disruption of family by separation and divorce 0 01/30/2018 Overview (03/04/2018): Parents: trial separation 11/2017 Mastitis of right breast unr elated to of 11/17/2017 Overview (11/17/2017): Right breast mastitis (10/01/17) see notes resolved completely on diclox Assessment & Plan (11/17/2017 1:41 PM EST): Right breast mastitis (10/01/17) see notes resolved completely on diclox @ this point no indication that is mastitis but will start sxrx and call if inc sx or concerns Family history of von Willebrand disease 016 Overview (02/28/2018): Mom: von Willebrand disease diagnosed at 18y, heavy menses, easy bruises, blood type O Exercise-induced asthma 12/05/2015 Hypermetropia, 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 Astigmatism of both eyes 09/27/2015 H/O cold sores 09/27/2015 Immunizations Immunization Administration Dates Next Due DTaP 11/17/2008, 9,02/19/2005,02/19,05/22/2004,05/22/2004,03/16/2004 ,03/16/2004,01/18/2004,01/18/2004 H1N1 Inj Preservative Free 08/26/2009 HPV Vaccine 9 Valent 02/08/2016,12/05/2015 Hep A, ped/adol 12/25/2016,12/05/2015 Hep B, ped/adol 08/23/2004, 4,2003,12/20,2003,2003 Hib (HbOC) 02/19/2005, 5,05/22/2004,05/22,03/16/2004,03/16/2004,01/18/2004 ,01/18/2004 IPV 11/17/2008, 9,08/23/2004,08/23,03/16/2004,03/16/2004,01/18/2004 ,01/18/2004 Influenza, injectable, quadrivalent 08/26/2009,1 Influenza, injectable, quadr ivalent, preservative free 11/01/2016,09/26/2015 Influenza, injectable, trivalent 009,08/24/2007,10/08/2006,08/31 Influenza, injectable, triva lent, preservative free 10/08/2006,08/31/2005 Influenza, intranasal, quadrivalent 08/20/2012 Influenza, intranasal, trivalent 08/20/2012 MMR 11/17/2008, 9,11/27/2004,11/27 Meningococcal Conj (Menactra) MCV4P 03/07/2015,0 03/07/2015 Pneumococcal Conjugate 02/19/2005,2004,05/22/2004,05/22,03/16/2004,03/16/2004,01/18/2004 ,01/18/2004 Tdap 03/07/2015,03/07/2015 Varicella 11/17/2008, 9,11/27/2004,11/27 Family History Medical History Relation Name Comments Seizures Cousin Other Father Alexander Polyposis, foll owed by Andrew Manuel MD, MEEI Alcoholism Maternal Great-Grandfather Von Willebrand disease Mother von W illebrand disease diagnosed at 18y, heavy menses, easy bruises, blood type O Parkinsonism Paternal Grandfather Relation Name Status Comments Cousin Father Alexander Alive Maternal Great-Grandfather Mother Alive Paternal Grandfather 2017 Paternal Grandmother 2017 Sister 1 Josefina Alive Sister 2 Mireille Alive Social History Tobacco Use Types Packs/Day Years Used Date Smoking Tobacco: Never Assessed Comments Unknown Sex and Gender Information Value Date Recorded Sex Assigned at Not on file Legal Sex Female 12:44 PM EST Gender Identity Not on file Sexual Orientation Not on file Last Filed Vital Signs Vital Sign Reading Time Taken Comments Blood Pressure 108/68 03/30/2017 12:00 AM EDT Pulse 80 12/25/2016 12:00 AM EST Temperature 36.4 C (97.6 F) 11/17/2017 9:27 AM EST Respiratory Rate - - Oxygen Saturation 98% 03/07/2015 12:00 AM EDT Inhaled Oxygen Concentration - - Weight 56.2 kg (124 lb) 11/17/2017 9:27 AM EST Height 162.6 cm (5' 4) 12/25/2016 12:00 AM EST Body Mass Index - - Plan of Treatment Health Maintenance Due Date Last Done Comments HPV Vaccines (3 - 2-dose series) 06/04/2016 02/08/2016, 12/05/2015 Men B Vaccine (1 of 2 - Standard) 2019 Influenza Vaccines (#1) 2024 11/01/20 16, 09/26/2015, 08/20/2012, Additional history exists COVID-19 Vaccine (2023- season) 2024 DTaP,Tdap,and Td Vaccines (8 - Td or Tdap) 03/07/2025 03/07/2015, 03/07/2015, 11/17/2008, Additional history exists Hepatitis B Vaccines Completed 08/23/2004, 08/23/2004, 2003, Additional history exists HIB Vaccines Completed 02/19/2005, 02/08, 05/22/2004, Additional history exists Pneumococcal Vaccine Completed 02/19/2005, 02/19/2005, 05/22/2004, Additional history exists IPV Vaccines Completed 11/17/2008, 06/2009, 08/23/2004, Additional history exists MMR Vaccines Completed 11/17/2008, 06/2009, 11/27/2004, Additional history exists Varicella Vaccines Completed 11/17/2008, 0 11/17/2008, 11/27/2004, Additional history exists Meningococcal Vaccine Aged Out 03/07/2015, 015 No longer eligible based on patient's age to complete this topic Hepatitis A Vaccines Completed 12/25/2016, 12/05/19 16 Insurance [facility]
--- NOTE | 2025-01-19 16:14 | ED_ITS ---
HPI - General Adult General Date Seen: 01/19/25 Chief complaint: Unspecified Complaint, Adult Stated complaint: medication withdrawal symptoms Time Seen by Provider: 01/19/25 16:13 History of Present Illness HPI narrative: 19-year-old female with a history of ADHD, depression, anxiety, presenting to the ER today with concern for withdrawal from Cymbalta. She has a known history of depression anxiety and has been on some version of antidepressants since she was 12 years old. She also has ADHD and takes Adderall for that. Her psychiatrist is in [place], where she is from. 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 She has been on Cymbalta in doing relatively well for the past several months. Being busy with finals, she ran out of her Cymbalta 2 days ago and has not had. For about the past 30 hours or so she has been having symptoms that she attributes to Cymbalta withdrawal. She has been feeling ?brain zaps fairly frequently, also anxiety, tremulousness, insomnia, tearfulness, and brain fog. She says she feels awful. She notes that she is under some stress with finals but says she would otherwise be doing fine during finals, if she were not out of Cymbalta. She has been able to cough contact her pharmacy and does have a refill prescription for Cymbalta available, waiting for her at the pharmacy this afternoon. However, given the severity of her symptoms, she came here to the ER. She says it will probably take several days of getting back on Cymbalta before it really starts to kick in. She says she can not go on feeling like this that long. She denies any other psychosocial stressors. She denies any other drug or alcohol use or abuse. She also has a prescription for Ativan that she uses on a p.r.n. basis for anxiety. She tried taking a dose of Ativan yesterday (0.5 mg p.o.) but it had no significant effect Related Data Home Medications ?Medication ?Instructions ?Recorded ?Confirmed Ativan 09/12/23 acyclovir 500mg 09/12/23 dextroamphetamine-amphetamine ER 30 mg PO DAILY 09/12/23 11/16/24 30 mg 24hr capsule,extend release (Adderall XR) montelukast 10 mg tablet 10 mg PO DAILY 09/12/23 11/16/24 (Singulair) duloxetine 30 mg capsule,delayed 30 mg PO DAILY 11/16/24 11/16/24 release (Cymbalta) propranolol 10 mg tablet 10 mg PO Q12H 11/16/24 11/16/24 duloxetine 60 mg capsule,delayed 60 mg PO DAILY 01/19/25 01/19/25 release Previous Rx's ?Medication ?Instructions ?Recorded lorazepam 1 mg tablet 0.5 - 1 mg (0.5 - 1 x 1 mg) PO TID 09/12/23 PRN #10 tabs Allergies Allergy/AdvReac Type Severity Reaction Status Date / Time shellfish Allergy Intermediate Abdominal Uncoded 09/12/23 09:08 Pain PFSH PFSH Social History Smoking Status: Light tobacco smoker Second hand tobacco smoke exposure: No How often do you have a drink containing alcohol: never AUDIT-C Alcohol total score: 0 Non-prescribed substance use: marijuana (any form) service: No Exam Narrative: Exam Narrative: Constitutional: Appears well-developed and well-nourished. Alert. Upset and tearful, anxious and shaky but overall conversant and able to carry on a conversation. She is definitely intelligent, alert and oriented HENT: Head: Atraumatic. Nose: Nose normal. Mouth/Throat: Oral mucosa is clear and moist. no trismus. Eyes: Conjunctivae injected and red from crying. EOM normal. Pupils equal, round, and reactive to light. No scleral icterus. Neck: Normal range of motion. Neck supple. No tracheal deviation present. Cardiovascular: Normal rate, regular rhythm. No gallop. No friction rub. No murmur heard. Pulmonary/Chest: Effort normal. No stridor. No respiratory distress. No wheezes. No rales. No rhonchi . Musculoskeletal: RUE: Normal range of motion. No tenderness. No deformity LUE: Normal range of motion. No tenderness. No deformity RLE: Normal range of motion. No edema. No tenderness. No deformity LLE: Normal range of motion. No edema. No tenderness. No deformity Lymph: No cervical adenopathy. Neurological: Alert and oriented to person, place, and time. Normal strength. CN II-VII intact. No sensory deficit. GCS eye subscore is 4. GCS verbal subscore is 5. GCS motor subscore is 6. Normal coordination Skin: Skin is warm and dry. No rash noted. Several tattoos. None look fresh or infected. No pallor. Normal capillary refill. Psychiatric: Tearful and shaky endorses anxiety. She is feeling terrible and is worried that there is something seriously wrong with her body. She also suspects, at the same time, that she is probably feeling Cymbalta withdrawal. Const: Vital Signs, click to edit/add: Vital Signs - 24 hr 01/19/25 16:17 01/19/25 19:14 01/19/25 19:21 Temperature 99.1 F Pulse Rate [Pulse Oximeter] 94 92 Respiratory Rate 20 16 Blood Pressure [Ri t Upper Arm] 133/89 128/75 Pulse Oximetry 98 99 99 Oxygen Delivery Me thod Room Air Room Air Course Course ED Course: Recheck, still anxious, tremulous, tearful after Ativan 1 mg p.o.. Does not feel any better. Agrees to try IV. Given failure to improve after 1 mg p.o. Ativan I ordered another dose, 0.5 mg IV. This was given by nurses. I had also ordered additional Ativan and droperidol, p.r.n.. these were ultimately not needed and not given. Reevaluation(s) Reevaluation #1: Recheck, not resting. Calmer. Still alert. Reevaluation #2: Recheck-doing well. Feels better. She feels comfortable discharging to home We gave her a dose of Cymbalta 90 mg p.o. here in the ER prior to leaving because she was not going to be able to get to her pharmacy to crab picker her new prescription tonight for closed. Vital Signs Vital signs: Initial Vital Signs Temperature 99.1 F 01/19/25 16:17 Temperature Source Temporal Artery Scan 01/19/25 16:17 Pulse Rate 94 01/19/25 16:17 Respiratory Rate 20 01/19/25 16:17 Blood Pressure 133/89 01/19/25 16:17 Blood Pressure Mean 103 01/19/25 16:17 Pulse Oximetry 98 01/19/25 16:17 Oxygen Delivery Method Room Air 01/19/25 16:17 Vital Signs Temperature 99.1 F 01/19/25 16:17 Pulse Rate 94 01/19/25 16:17 Respiratory Rate 20 01/19/25 16:17 Blood Pressure 133/89 01/19/25 16:17 Pulse Oximetry 98 01/19/25 16:17 Oxygen Delivery Method Room Air 01/19/25 16:17 Temperature 99.1 F 01/19/25 16:17 Pulse Rate 92 01/19/25 19:14 Respiratory Rate 16 01/19/25 19:14 Blood Pressure 128/75 01/19/25 19:14 Pulse Oximetry 99 01/19/25 19:21 Oxygen Delivery Method Room Air 01/19/25 19:14 Medications Administered Medications: Discontinued Medications Generic Name Dose Route Start Last Admin Trade Name Kyleq PRN Reason Stop Dose Admin Droperidol 1.25 mg 01/19/25 17:30 01/19/25 19:05 Droperidol 2.5 Mg/Ml Inj IV 01/19/25 17:31 Not Given ONCE ONE Duloxetine HCl 90 mg 01/19/25 19:18 01/19/25 19:30 Duloxetine [address] PO 01/19/25 19:19 90 mg ONCE ONE Administration Lorazepam 1 mg 01/19/25 16:33 01/19/25 16:36 Lorazepam 1 Mg Tablet PO 01/19/25 16:34 1 mg ONCE ONE Administration Lorazepam 0.5 mg 01/19/25 17:42 01/19/25 17:46 Lorazepam 2 Mg/Ml Inj IVP 01/19/25 17:43 0.5 mg ONCE ONE Administration Medical Decision Making [facility] Narrative Medical decision making narrative: Pleasant 19-year-old female [facility] Elizabeth presenting to the ER today with anxiety, insomnia, shakiness, ?brain zaps,? ongoing for the past couple of days since she ran out of her Cymbalta prescription. She is concerned that she is going through Cymbalta withdrawal. I agree that symptoms could be consistent with SSRI discontinuation syndrome. She was quite anxious, tearful, tremulous which she presented. She responded well to serial doses of Ativan here in the ER. She is feeling better and is safe for discharge back to her dorm at [facility]. She will be able to continue her duloxetine tomorrow morning. She has a supply of Ativan that she can use as needed for anxiety over the next day or 2 while s he gets back on her stable dose of duloxetine. Her normal dose of Ativan is 0.5 mg p.r.n. for panic attack. That dose was not effective in helping her yesterday. Over the short term, she will increase her dose of to 1 mg as needed. She will follow-up with her psychiatrist who is in [place]. Precautions for return to the ER reviewed. 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 If you have more trouble with anxiety and insomnia it is okay to take your Ativan 0.5-1 mg per dose every 6 hours. If you have symptoms uncontrolled by that, please contact her doctor or come back to the ER right away to be rechecked. Remember not to mix your medications with any other substances such as alcohol or drugs, because that can lead to excess drowsiness The medicines he received here in the ER will make you drowsy. Do not drive a car or operate machinery for 6 hours Prescriptions: No Action duloxetine [Cymbalta] 30 mg capsule,delayed release(DR/EC) 30 mg PO DAILY propranolol 10 mg tablet 10 mg PO Q12H montelukast [Singulair] 10 mg tablet 10 mg PO DAILY acyclovir 500mg 500 mg dextroamphetamine-amphetamine [Adderall XR] 30 mg capsule,extended release 24hr 30 mg PO DAILY Ativan 0.5 mg Patient Comments: PRN lorazepam 1 mg tablet 0.5 - 1 mg PO TID PRNQty: 10 0RF duloxetine 60 mg capsule,delayed release(DR/EC) 60 mg PO DAILY Follow Up/Referrals: Provider,Not a Local [Primary Care Provider] - Stand Alone Forms: [facility] Info Instructions
[2025-01-19 16:17] VITALS: BP 133/89; PULSE 94; RESP 20; TEMP 37.3; O2SAT 98; BMI 19.8
[2025-01-19] MEDS: LORazepam 1 MG TABLET PO (16:36)
--- OUTSIDE RECORDS SUMMARY | 2025-01-19 17:02 | XMS_ITS | Clinical Summary ---
Author Organization [facility] Address [address] [place] [address] Phone Care Team Providers Care Accounts Payable Lead Name Role Phone Francesca Colindres MD Unavailable [phone] Francesca Colindres MD Primary Care Provider [phone] Francesca Colindres MD Unavailable [phone] Allergies Active Allergy Reactions Criticality Noted [...] EA, Refills: 1, Entered: 05/28/23 14:35:00 EDT, [id number] 3 Active fluticasone (Flovent HFA) 110 mcg/actuation inhaler Dose Amount: 2 puff, INH, BID, Dispense Quantity: 1 EA, Entered: 06/27/23 18:30:00 EDT, [facility] 3 Active levonorgestrel (Mirena) 52 mg [...] EA, Refills: 0, Entered: 05/28/23 14:33:00 EDT, [id number] 3 Active promethazine (Phenergan) 25 mg tablet Dose: 25 mg, Dose Amount: 1 tab, PO, Q6hr, PRN as needed for nausea/vomiting , Dispense Quantity: 30 tab, Refills: 0, Entered: 03/14/23 11:10:00 EDT, [id number] 3 Active SUMAtriptan (Imitrex) 50 mg tablet See Instructions, PRN migraine, Special Instructions: 1 tab PO, may repeat dose in 2 hours if needed, Dispense Quantity: 18 tab, Refills: 0, Entered: 04/10/23 14:49:00 EDT, [id number] 3 Active fluticasone 50 [...] Type Department Care Team Description 01/03/2025 Telephone [facility] Metabolism [address] [place] [address] Amy Simeon, [facility] Referral triage 12/14/2024 3:15 PM EST Telemedicine [facility] [address] [place] [address] Delmy Hahn MD, DMD Impacted third molar [...] Moderna SARS-CoV-2 Bivalent Booster 12+ 11/04/2022 Novel [id number] 08/26/2009 Pfizer Purple Cap SARS-CoV-2 10/19/2021,02/16/20 21,01/25/2021 [...] EDT) HIV-1/2 Combo Antigen/Antibo dy Non-reacti ve [facility] 05/22/2023 7:36 PM EDT 05/22/2023 7:51 PM EDT us Giselle Torres MD LAB BLOOD ORDERABLES Final Result [facility] [address] [place] [address], from Last 3 Months or Most Recently Relevant to Health Maintenance Insurance [employer] [facility] [place] [id number] [employer] [place] Care Teams Accounts Payable Lead Relationship Specialty Start Date End Date Francesca Colindres MD [address] [place] [address] PCP - Insurance PCP 03/03/18 Francesca Colindres MD [address] [place] [address] PCP - General 02/24/18 Francesca Colindres MD [address] [place] [address] PCP - Insurance Identified PCP 05/07/24
--- OUTSIDE RECORDS SUMMARY | 2025-01-19 17:02 | XMS_ITS | Clinical Summary ---
Author Organization [facility] [employer] Address [address] [place] [address] Care Team Providers Care Molding Process Technician Name Role Phone Francesca Colindres MD Primary Care Provider [phone] Allergies No known active allergies Medications promethazine [...] Adults 18 yrs or above (or HM Modifier)([facility]) 2021 Hepatitis C Virus Infection in Adolescents and Adults: Screening (or Modifier) ([facility]) 2021 SDOH Screening Reminder: Annually for all adults ([facility]) 2021 Tobacco Smoking Cessation: i n Adults excluding Women: Behavioral and Pharmacotherapy Interventions ([facility]) 2021 Lipid Screening: Once for Women aged 20 to 45 yrs ([facility]) 2023 Flu Vaccination: Yearly for ages 18mos through 64 years (or Modifier)([facility]) 06/10/2024 11/01/2016, 09/26/2015, 08/26/2009, Additional history exists COVID-19 Vaccine Screening: Initial Series and Booster Status ([facility]) (2023- season) 2024 Cervical Cancer Screenin-65 yrs of age (or Modifier) 2024 Cervical Cancer Screening: Pap every 3 yrs pts age 21-65 2024 Cervical Cancer: Pap Screening with Modifier timing ([facility]) 2024 Cervical Cancer: hrHPV alone or with cotesting Pap for Pts 30-65yrs screening every 5yrs ([facility]) 2024 DTaP/Tdap/Td Vaccines ([facility]) (7 - Td or Tdap) 03/07/2025 03/07/2015, 11/17/2008, 02/19/2005, Additional history exists Zoster/Shingles Vaccine Series Screening: Adults aged 18+ yrs (or HM Modifiers)([facility]) (1 of 2) 2053 11/17/2008, 11/27/2004 Pneumococcal Vaccination Screening: Pts 0-19 & 19-64 yrs of age ([facility]) Aged Out 02/19/2005, 05/22/2004, 03/16/2004, Additional history exists No longer eligible based on patient's age to complete this topic [employer] [place] [id number] [facility] Care Teams Molding Process Technician Relationship Specialty Start Date End Date Francesca Colindres MD [address] [place] [address] PCP - General Adolescent Medicine 05/18/18
--- OUTSIDE RECORDS SUMMARY | 2025-01-19 17:03 | XMS_ITS | Clinical Summary ---
Author Organization [facility] Address [address] [place] [address] Care Team Providers Care Finance Insurance Manager Name Role Phone Pcp, No Primary [...] Comments Blood Pressure 111/75 12/30/2023 2:04 PM MENU PLANNER Pulse 72 12/30/2023 2:04 PM MENU PLANNER Temperature 36.8 C (98.2 F) 12/30/2023 2:04 PM MENU PLANNER Respiratory Rate - - Oxygen Saturation 100% 12/30/2023 2:04 PM MENU PLANNER Inhaled Oxygen Concentration - - Weight 57.4 kg (126 lb 9.6 oz) 12/30/2023 2:04 P M MENU PLANNER Height 166 cm (5' 5.35) 03/19/2023 8:17 [...] vaccine series ( - 2023- season) 2024 10/19/2021, 02/15/2021, 01/25/2021 Influenza Vaccine (#1) 2024 07/30/2022 Pap test for age 21-65 2024 Tetanus booster 03/07/2025 03/07/2015 Meningococcal series for age 11-21 Aged Out 03/07/2015 No longer eligible based on patient's age to complete this topic Tdap Completed 03/07/2015 Insurance [employer] [facility] Care Teams Finance Insurance Manager Relationship Specialty Start Date End Date Pcp, No . PCP - General 08/15/22
--- OUTSIDE RECORDS SUMMARY | 2025-01-19 17:03 | XMS_ITS | Encounter Summary ---
Author Organization [facility] Address [address] [place] [address] Phone Care Team Providers Care Hvac Project Engineer Name Role Phone Francesca Colindres MD Unavailable [phone] Francesca Colindres MD Primary Care Provider [phone] Francesca Colindres MD Unavailable [phone] Reason for Visit * Reason Onset Date Comments Referral triage 01/03/2025 Encounter Details Date Type Department Care Team (Late st Contact Info) Description 01/03/2025 Telephone [facility] Genetics Metabolism [address] [place] [address] Amy Simeon CGC Referral triage [...] is no faxed referral or information in [facility]. Needed to appropriately triage and schedule. Provided my call-back number. Amy Simeon MS, [facility] Licensed Genetic Counselor Division of Genetics & Genomics documented in this encounter Plan of Treatment Not on file documented as of this encounter Visit Diagnoses Not on filedocumented in this encounter Care Teams Hvac Project Engineer Relationship Specialty Start Date End Date Francesca Colindres MD [address] [place] [address] PCP - Insurance PCP 03/03/18 Francesca Colindres MD [address] [place] [address] PCP - General 02/24/18 Francesca Colindres MD [address] [place] [address] PCP - Insurance Identified PCP 05/07/24 documented as of this encounter
--- OUTSIDE RECORDS SUMMARY | 2025-01-19 17:03 | XMS_ITS | Clinical Summary ---
Author Organization [facility] Address [address] [place] [address] Phone Care Team Providers Care Lodging House Keeper Name Role Phone Unavailable Primary Care Provider [...] A Vaccines Completed 12/25/2016, 12/05/19 16 Insurance [facility]
--- OUTSIDE RECORDS SUMMARY | 2025-01-19 17:03 | XMS_ITS | Clinical Summary ---
Author Organization [employer] Address [address] [facility] [place] [address] Care Team Providers Care Contracting Executive Name Role Phone Poc, Non Atrius Pcp Or Primary Care Provider Cass vailable Active Problems Problem Noted Date Diagnosed Date Cystitis 2003 Overview (06/28/2008): Per previous PCP, nml renal us vindlzhc79/29/07 Immunizations Name Administration Dates Next Due DTaP Vaccine 02/19/2005, 4,03/16/2004, 004 HFlu B Conj (Unspecified Formulation) 02/19/2005,05/22/2004,03/16/2004, 004 Hep B Vaccine (<11 Years) 08/23/2007,2003, 2003 Influenza Vaccine (Unspecifi ed Formulation) 09/19/2008,08/31/2005 MMR Vaccine 11/27/2004 Pneumococ/Pedi-Conjugate (PCV7) 02/20/20 05,05/22/2004,03/16/2004, 004 Polio Vaccine (Inactivated) 08/28/2004, 4,01/18/2004 Varicella Vaccine 11/27/2004 Family History Medical History Relation Comments Cancer - ovarian Maternal Aunt Psych - depression Maternal Grandmother Von Willebrand's [Other] Mother Cancer - breast Paternal Aunt Psych - depression Paternal Grandfather Hypertension Paternal Grandmother Parkinson's [Other] Paternal Grandmother Relation Status Comments Maternal Aunt Maternal Grandmother Mother Paternal Aunt Paternal Grandfather Paternal Grandmother Social History Tobacco Use Types Packs/Day Years Used Date Smoking Tobacco: Never Assessed Comments Unknown Sex and Gender Information Value Date Recorded Sex Assigned at Not on file Legal Sex Female 4:42 AM EDT Gender Identity Not on file Sexual Orientation Not on file History Length Weight Head Circum Date/Time Gestation Age D/C Weight APGARs Delivery Method Feeding 2003 Last phr (12/04/07):Wt: 41lbs Ht: 42.5BP: 90/50Vision: OD 20/50 OS 20/40 (Referred to opth. And got 20/20 in each eye, no glasses needed)No lead or hgb on file Obstetrics History Plan of Treatment Health Maintenance Due Date Last Done Comments DTAP/TDAP/TD VACCINE (5 - Tdap) 2010 02/19/2005, 05/22/2004, 03/16/2004, Additional history exists HPV VACCINE (1 - 3-dose series) 2018 CHLAMYDIA SCREENING FEMALE 16-24 2019 HEP B INITIAL SCREENING 2021 HEP C SCREENING 2021 HIV SCREENING 2021 PERIODIC HEALTH REVIEW 2022 LIPID SCREENING 2023 COVID-19 Vaccine ( season) 2024 FLU SEASONAL (#1) 07/11/2024 09/19/2008, 5 POLIO VACCINE Aged Out 08/28/2004, 05/2004, 01/18/2004 No longer eligible based on patient's age to complete this topic RUBELLA Completed 11/27/2004 HAEMOPHILUS INFLUENZA VACCINE Completed 02/19/2005, 05/22/2004, 03/16/2004, Additional history exists PNEUMOCOCCAL VACCINE(S) Aged Out 02/20/20, 05/22/2004, 03/16/2004, Additional history exists No longer eligible based on patient's age to complete this topic HEPATITIS B VACCINE Completed 08/23/2007, 2003, 2003 HEPATITIS A VACCINE Aged Out No longe r eligible based on patient's age to complete this topic MENINGOCOCCAL VACCINE (ACWY) Aged Out No longer eligible based on patient's age to complete this topic RSV Vaccine Infant//toddler Aged Out No longer eligible based on patient's age to complete this topic Care Teams Contracting Executive Relationship Specialty Start Date End Date Poc, Non Atrius Pcp Or PCP - General 10/07/08
--- OUTSIDE RECORDS SUMMARY | 2025-01-19 17:03 | XMS_ITS | Encounter Summary ---
Author Organization [facility] Address [address] [place] [address] Phone Care Team Providers Care Coat Cutter Name Role Phone Emanuel Aragon MD Primary Care Provider [phone] Encounter Details Date Type Department Care Team (Late st Contact Info) Description 06/18/2017 Conversion Encounter Drs. Alexander Bradley [address] [place] [address], [facility] [address] [place] [address] Emanuel Aragon MD [address] [place] [address] [address] [place] [address] Social History Tobacco Use Types Packs/Day Years [...] on filedocumented in this encounter Care Teams Coat Cutter Relationship Specialty Start Date End Date Emanuel Aragon MD [address] [place] [address] [address] [place] [address] PCP - General 05/24/17 12/21/20 documented as of this encounter
--- OUTSIDE RECORDS SUMMARY | 2025-01-19 17:03 | XMS_ITS | Encounter Summary ---
Author Organization [facility] spital Address [address] [place] [address] Phone Care Team Providers Care Flatwork Supervisor Name Role Phone Francesca Colindres MD Unavailable [phone] Francesca Colindres MD Primary Care Provider [phone] Francesca Colindres MD Unavailable [phone] Reason for Visit * Consultation (Routine) - Authorized Specialty Diagnoses / Procedures Referred By Dm duncan Referred To Contact Pediatric Plastic Surgery Referral ID Status Reason Start Date Expiration Date V isits Requested Visits Authorized [id number] Authorized 09/21/2024 09/21/2025 6 6 Encounter Details Date Type Department Care Team (Late st Contact Info) Description 12/14/2024 3:15 PM EST Telemedicine [facility] [address] [place] [phone] Delmy Hahn MD, DMD [address] [place] [address] Impacted third molar tooth (Primary Dx) Social [...] EA, Refills: 0, Entered: 05/28/23 14:33:00 EDT, [id number], Disp: , Rfl: promethazine (Phenergan) 25 mg tablet, Dose: 25 mg, Dose Amount: 1 tab, PO, Q6hr, PRN as needed fornausea/vomiting SUMAtriptan (Imitrex) 50 mg tablet, See Instructions, PRN migraine, Special Instructions: 1 tab PO,may repeat dose in 2 hours if needed, Dispense Quantity: 18 tab, Refills: 0, Entered: 04/10/23 14:49:00 EDT, [facility], Disp: , Rfl: valACYclovir 500 mg tablet, Take 500 mg = 1 tablet by mouth 1 time each day Cymbalta 90mg daily Adderal EXT 40mg ALLERGIES: Allergies Allergen Reactions Shellfish Derived Vomiting FAMILY HISTORY: Non-contributory SOCIAL HISTORY: Denies tobacco and alcohol use. 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 REVIEW OF SYSTEMS: She currently denies headache, [...] pathology. ASSESSMENT AND PLAN: A combination of zjnl-vo-apbx and rcf-bqty-wh-face time was spent on reviewingthe patient's outside [...] answered to their satisfaction. Flavia Elaine PA-C [facility] Department of Plastic and Oral Surgery I [...] and plan. Delmy Hahn DMD, MD Oral Nvjmmrh-ey-Shrpw [facility] Department of Plastic and Oral Surgery The visit took place via telehealth using video. I was located at [facility] or [facility]. The patient and/or guardian were located [...] eruption documented in this encounter Care Teams Flatwork Supervisor Relationship Specialty Start Date End Date Francesca Colindres MD [address] [place] [address] PCP - Insurance PCP 03/03/18 Francesca Colindres MD [address] [place] [address] PCP - General 02/24/18 Francesca Colindres MD [address] [place] [address] PCP - Insurance Identified PCP 05/07/24 documented as of this encounter
--- OUTSIDE RECORDS SUMMARY | 2025-01-19 17:03 | XMS_ITS | Encounter Summary ---
Author Organization [facility] Address [address] [place] [address] Phone Care Team Providers Care Woodworking Machine Setter Name Role Phone Emanuel Aragon MD Primary Care Provider [phone] Encounter Details Date Type Department Care Team (Late st Contact Info) Description 09/22/2017 Conversion Encounter Pediatrics at [facility] @ [address], [address] [place] [address] Marine Constantino MD [address] [facility] [address] [place] [address] Social History Tobacco Use Types Packs/Day Years [...] on filedocumented in this encounter Care Teams Woodworking Machine Setter Relationship Specialty Start Date End Date Emanuel Aragon MD [address] [place] [address] [address] [place] [address] PCP - General 05/24/17 12/21/20 documented as of this encounter
--- OUTSIDE RECORDS SUMMARY | 2025-01-19 17:03 | XMS_ITS | Encounter Summary ---
Author Organization [facility] Address [address] [facility] [address] [place] [address] Phone Care Team Providers Care Photogeologist Name Role Phone Marine Constantino MD, PhD Unavailable [phone] Francesca Colindres MD Primary Care Provi [facility] Encounter Details Date Type Department Care Team ([facility] st Contact Info) Description 04/05/2019 EpicOnHand Encounter [facility] Emergency [facility] [address] [place] [address] Cuco Steve MD, MPH [address] [place] [address] [email or web address] Social History Tobacco Use Types Packs/Day Years [...] documented as of this encounter Care Teams Photogeologist Relationship Specialty Start Date End Date Francesca Colindres MD [address] [place] [address] PCP - General Adolescent Medicine 04/01/19 Marine Constantino MD, PhD [email or web address] 12/03/13 documented as of this encounter Additional Source Comments The information contained in this document represents components of the legal health record. It is not the complete legal health record.[facility]
--- OUTSIDE RECORDS SUMMARY | 2025-01-19 17:03 | XMS_ITS | Encounter Summary ---
Author Organization [facility] Address [address] [facility] [address] [place] [address] Phone Care Team Providers Care Machined Parts Metal Sprayer Name Role Phone Marine Constantino MD, PhD Unavailable [phone] Francesca Colindres MD Primary Care Provi [facility] Encounter Details Date Type Department Care Team ([facility] st Contact Info) Description 04/01/2019 Ophth Exam [facility] Emergency Department [address] [place] [address] Yuval Cool MD [address] [facility] [address] [place] [address] [email or web address] Social History Tobacco Use Types Packs/Day Years [...] documented as of this encounter Care Teams Machined Parts Metal Sprayer Relationship Specialty Start Date End Date Francesca Colinders MD [address] [place] [address] PCP - General Adolescent Medicine 04/01/19 Marine Constantino MD, PhD [email or web address] 12/03/13 documented as of this encounter Additional Source Comments The information contained in this document represents components of the legal health record. It is not the complete legal health record.[facility]
[2025-01-19] MEDS: LORazepam 2 MG/ML inj 0.5 MG IVP (17:46)
[2025-01-19 19:14] VITALS: BP 128/75; PULSE 92; RESP 16; O2SAT 99
[2025-01-19 19:21] VITALS: O2SAT 99
[2025-01-19] MEDS: DULOXETINE 30 MG CAPSULE DR 90 MG PO (19:30)
== END 2025-01-19 19:49 | disposition home or self-care (01) ==
PROVIDERS: Emergency Provider Emergency Medicine
DX: F41.9 Anxiety disorder, unspecified (principal); T43.225A Adverse effect of selective serotonin reuptake inhibitors, initial encounter
CPT/HCPCS: 94761; 96374; 99284; A9270; J2060

== ENCOUNTER 2025-06-07 10:25 | Outpatient (CLI) | payer BC, SELFPAY | END 2025-06-07 10:26 | disposition home or self-care (01) | LOC: AMB 06-13 15:04 | PROVIDERS: Visit Provider Family Medicine | DX: R19.7 Diarrhea, unspecified (principal); R11.10 Vomiting, unspecified; R53.1 Weakness | CPT/HCPCS: A0425; A0427 ==

== ENCOUNTER 2025-06-07 10:57 | Emergency (ER) | payer BC, SELFPAY ==
--- OUTSIDE RECORDS SUMMARY | 2025-06-07 11:04 | XMS_ITS | Clinical Summary ---
Author Organization [facility] spital Address [address] [place] [address] Phone Care Team Providers Care Water Vessel Captain Name Role Phone Francesca Colindres MD Unavailable [phone] Francesca Colindres MD Primary Care Provider [phone] Francesca Colindres MD Unavailable [phone] Allergies Active Allergy Reactions Criticality Noted [...] EA, Refills: 1, Entered: 05/28/23 14:35:00 EDT, [id number] 3 Active fluticasone (Flovent HFA) 110 mcg/actuation inhaler Dose Amount: 2 puff, INH, BID, Dispense Quantity: 1 EA, Entered: 06/27/23 18:30:00 EDT, [facility] 3 Active levonorgestrel (Mirena) 52 mg [...] EA, Refills: 0, Entered: 05/28/23 14:33:00 EDT, [facility] 3 Active promethazine (Phenergan) 25 mg tablet Dose: 25 mg, Dose Amount: 1 tab, PO, Q6hr, PRN as needed for nausea/vomiting , Dispense Quantity: 30 tab, Refills: 0, Entered: 03/14/23 11:10:00 EDT, [facility] 3 Active SUMAtriptan (Imitrex) 50 mg tablet See Instructions, PRN migraine, Special Instructions: 1 tab PO, may repeat dose in 2 hours if needed, Dispense Quantity: 18 tab, Refills: 0, Entered: 04/10/23 14:49:00 EDT, [facility] 3 Active fluticasone 50 mcg/spray nasal sprayIndication s:Medication management Administer 1 spray into each nostril 2 times a day. Shake gently. Before first use, prime pump. After use, clean tip and replace cap. 16 g 5 Active Immunizations Immunization Administration Dates Next Due DTaP 11/17/2008, 5,05/22/2004,03/16,01/18/2004 HPV, Unspecified 07/08/2018,02/08/2016, 6 Hep A, Unspecified 12/25/2016,12/05/2015 Hep B, Adolescent or Pediatric 2003 Hep B, Unspecified 08/23/2004,2003 HiB, unspecified 02/19/2005, 4,03/16/2004,01/17,2003,2003 IPV 11/17/2008, 4,03/17/2004,03/16,01/18/2004 Influenza, Unspecified 10/15/2021,2019,08/25/2019,09/10,09/10/2018,08/16/2018,11/01/2016 ,10/21/2016,09/26/2015,08/20/2012,08/10,09/19/2008,08/24/2007, 6,08/31/2005 MMR 11/17/2008,11/17/2004 Meningococcal ACWY, unspecified 03/06/2022,03/07 Meningococcal B, Unspecified 06/14/2022,03/06/20 22 Moderna SARS-CoV-2 Bivalent Booster 12+ 11/04/2022 Novel [id number] 08/26/2009 Pfizer Purple Cap SARS-CoV-2 10/19/2021,02/16/20 21,01/25/2021 [...] (2 of 2 - 2-dose childhood series) 09/23/2009 11/17/2008, 11/27/2004 Hepatitis C Screening 2021 Meningococcal B Vaccine (1 of 2 - Standard) 07/12/2022 06/14/2022, 03/06/2022 COVID-19 Vaccine ( season) 2024 11/04/2022, 10/19/2021, 02/15/2021, Additional history exists DTaP/Tdap/Td Vaccines (7 - Td or Tdap) 03/07/2025 03/07/2015, 11/17/2008, 02/19/2005, Additional history exists Influenza Vaccine (#1) 2025 , 10/15/2021, 08/21/2020, Additional history exists HIB Vaccines Completed 02/19/2005, [...] EDT) HIV-1/2 Combo Antigen/Antibo dy Non-reacti ve [facility] 05/22/2023 7:36 PM EDT 05/22/2023 7:51 PM EDT us Giselle Torres MD LAB BLOOD ORDERABLES Final Result [facility] [address] [place] [address], [place] [phone] from Last 3 Months or Most Recently Relevant to Health Maintenance Insurance [employer] [place] [id number] [employer] [place] [id number] Care Teams Water Vessel Captain Relationship Specialty Start Date End Date Francesca Colindres MD [address] [place] [address] PCP - Insurance PCP 03/03/18 Francesca Colindres MD [address] [place] [address] PCP - General 02/24/18 Francesca Colindres MD [address] [place] [id number] PCP - Insurance Identified PCP 05/07/24
--- OUTSIDE RECORDS SUMMARY | 2025-06-07 11:04 | XMS_ITS | Clinical Summary ---
Author Organization [employer] [facility] [employer] Address [address] [address] Care Team Providers Care Gunner'S Mate Name Role Phone Francesca Colindres MD Primary Care Provider [phone] Allergies No known active allergies Medications promethazine [...] Adults 18 yrs or above (or HM Modifier)([facility]) 2021 Hepatitis C Virus Infection in Adolescents and Adults: Screening (or Modifier) ([facility] ) 2021 SDOH Screening Reminder: Annually for all adults ([facility]) 2021 Tobacco Smoking Cessation: i n Adults excluding Women: Behavioral and Pharmacotherapy Interventions ([facility]) 2021 COVID-19 Vaccine Screening: Initial Series and Booster Status ([facility]) (2023- season) 2024 Cervical Cancer Screenin-65 yrs of age (or Modifier) 2024 Cervical Cancer Screening: Pap every 3 yrs pts age 21-65 2024 Cervical Cancer: Pap Screening with Modifier timing ([facility]) 2024 Cervical Cancer: hrHPV alone or with cotesting Pap for Pts 30-65yrs screening every 5yrs ([facility] ) 2024 DTaP/Tdap/Td Vaccines ([facility]) (7 - Td or Tdap) 03/07/2025 03/07/2015, 11/17/2008, 02/19/2005, Additional history exists Flu Vaccination: Yearly for ages 18mos through 64 years (or Modifier)([facility] ) 06/10/2025 11/01/2016, 09/26/2015, 08/26/2009, Additional history exists Zoster/Shingles Vaccine Series Screening: Adults aged 18+ yrs (or HM Modifiers)([facility]) (1 of 2) 2053 11/17/2008, 11/27/2004 Pneumococcal Vaccination Screening: Pts 0-19 & 19-49 yrs of age ([facility]) Aged Out 02/19/2005, 05/22/2004, 03/16/2004, Additional history exists No longer eligible based on patient's age to complete this topic [employer] [place] [id number] [facility] Care Teams Gunner'S Mate Relationship Specialty Start Date End Date Francesca Colindres MD [address] [place] [phone] PCP - General Adolescent Medicine 05/18/18
--- OUTSIDE RECORDS SUMMARY | 2025-06-07 11:04 | XMS_ITS | Clinical Summary ---
Author Organization [employer] Address [address] [facility] 3[facility] [place] [address] Care Team Providers Care Ladle Mechanic Name Role Phone Poc, Non Atrius Pcp Or Primary Care Provider Cass vailable Active Problems Problem Noted Date Diagnosed Date Cystitis 2003 Overview (06/28/2008): Per previous PCP, nml renal us ppepubry31/29/07 Immunizations Immunization Administration Dates Next Due DTaP Vaccine 02/19/2005, 4,03/16/2004,2003 HFlu B Conj (Unspecified Formulation) ,05/22/2004,03/16/2004,2003 Hep B Vaccine (<11 Years) 08/23/2007,2003, 2003 Influenza Vaccine (Unspecifi ed Formulation) 09/19/2008,08/31/2005 MMR Vaccine 11/27/2004 Pneumococ/Pedi-Conjugate (PCV7) 02/20/20 05,05/22/2004,03/16/2004,2003 Polio Vaccine (Inactivated) 08/28/2004, 4,01/18/2004 Varicella Vaccine [...] Done Comments DTAP/TDAP/TD VACCINE (5 - Tdap) 2014 02/19/2005, 05/22/2004, 03/16/2004, Additional history exists HPV VACCINE (1 - 3-dose series) 2018 CHLAMYDIA SCREENING FEMALE 16-24 2019 HEP B INITIAL SCREENING 2021 HEP C SCREENING 2021 HIV SCREENING 2021 PERIODIC HEALTH REVIEW 2022 LIPID SCREENING 2023 COVID-19 Vaccine ( season) 2024 PAP: UPDATE W EDIT MODIFIERS 2024 FLU SEASONAL (Season Ended) 2025 09/19/2008, 08/31/2005 POLIO VACCINE Aged Out 08/28/2004, 05/2004, 01/18/2004 [...] age to complete this topic Care Teams Ladle Mechanic Relationship Specialty Start Date End Date Poc, Non Atrius Pcp Or PCP - General 10/07/08
--- OUTSIDE RECORDS SUMMARY | 2025-06-07 11:04 | XMS_ITS | Clinical Summary ---
Author Organization [facility] Address [address] [facility] [address] [place] [address] Phone Care Team Providers Care Tow Car Driver Name Role Phone Marine Constantino MD, PhD Unavailable [phone] Francesca Colindres MD Primary Care Provi steve Allergies Active Allergy Reactions Criticality Noted Date Comments Latex, Natural Rubber 02/02/2021 Shellfish Containing Products 2018 Medications MULTIVITAMIN ORAL Take by mouth. Activ e albuterol (VENTOLIN HFA) 90 mcg/actuation inhaler INHALE 2 PUFFS BY MOUTH EVERY 4 HOURS NEEDED COUGH OR DIFFICULTY BREATHING 9 Active fluticasone propionate (FLOVENT HFA) 110 mcg/actuation inhaler INHALE 2 PUFFS BY MOUTH TWO TIMES DAILY 9 Active LORazepam (ATIVAN) 0.5 MG tablet TAKE 1 TABLET BY MOUTH EVERY DAY NEEDED FOR SEVERE ANXIETY . MAY REPEAT IN 40 MINUTES IF INEFFECTIVE 9 Active promethazine (PHENERGAN) 25 MG tablet TAKE ONE TABLET BY MOUTH EVERY 6 HOURS 8 Active SUMAtriptan (IMITREX) 50 MG tablet TAKE 1 TABLET BY MOUTH, MAY REPEAT DOSE IN 2 HOURS NEEDED 8 Active valACYclovir (VALTREX) 500 MG tablet Take 500 mg by mouth. Active venlafaxine (EFFEXOR) 100 MG tablet Take 125 mg by mouth daily. Active sertraline (ZOLOFT) 100 MG tablet Take 200 mg by mouth daily. 1 Active Active Problems Problem Noted Date Diagnosed Date Migraine with aura 02/10/2022 Herpes labialis 02/10/2022 History of panic attacks 01/30/2018 Overview (02/10/2022): Followed by Hortencia Castro, PhD and Brittany Gill MD, per GI note (12/2017). Javon Ativan for panic attacks. Family history of von [...] with a working camera? Not on file Comments No Sex and Gender Information Value Date Recorded Sex Assigned at Female 01/12/2020 12:11 AM EST Legal Sex Female 9:26 AM EDT Gender Identity Female 01/12/2020 12:11 AM EST [...] SMOKELESS TOBACCO SCREENING 2016 CHLAMYDIA SCREENING 2019 MENINGOCOCCAL VACCINES (B) (1 of 2 - Standard) 2019 ADOLESCENT UNIVERSAL LIPID SCREENING 2020 HEPATITIS C SCREENING 2021 HIV ONE-TIME SCREENING (18-65 YEARS) 2021 COVID-19 VACCINE ( season) 2024 10/19/2021, 02/15/2021, [...] 01/10, 12/05/2015 [employer] [place] [id number] [employer] [place] POS O POS O POS [facility] Member Subscriber Plan / Payer (Ef fective 2019-Present) Name:Bre Reece Relation to Subscriber:Child Name:AMANDA REECE I Date of :1971 (Home) Address: [address] [place] [address] Payer ID:[id number] (NAIC) Type:O Address: [facility] [address] [place], [place] Care Teams Tow Car Driver Relationship Specialty Start Date End Date Francesca Colindres MD [address] [place] [phone] PCP - General Adolescent Medicine 04/01/19 Marine Constantino MD, PhD [email or web address] 12/03/13 Additional Source Comments The information contained in this document represents components of the legal health record. It is not the complete legal health record.[facility]
--- OUTSIDE RECORDS SUMMARY | 2025-06-07 11:05 | XMS_ITS | Encounter Summary ---
Author Organization [facility] Address [address] [facility] [address] [place] [address] Phone Care Team Providers Care Rental Salesperson Name Role Phone Marine Constantino MD, PhD Unavailable [phone] Francesca Colindres MD Primary Care Provi [facility] Encounter Details Date Type Department Care Team ([facility] st Contact Info) Description 04/01/2019 Ophth Exam [facility] Department [address] [place] [address] Yuval Cool MD [address] [place] [address] [email or web address] Social History Tobacco Use Types Packs/Day Years Used Date Smoking Tobacco: Never Smokeless Tobacco: Never Alcohol Use Standard Drinks/Week Comments Never 0 (1 standard drink = 0.6 oz pur e alcohol) Comments Unknown Sex and Gender Information Value Date Recorded Sex Assigned at Female 01/12/2020 12:11 AM EST Legal Sex Female 9:26 AM EDT Gender Identity Female 01/12/2020 12:11 AM EST Sexual Orientation Bisexual 01/12/2020 12 :11 AM EST documented as of this encounter Functional Status documented as of this encounter Plan of Treatment Not on file documented as of this encounter Visit Diagnoses Not on filedocumented in this encounter Additional Health Concerns Infection Onset Date Last Indicated Resolved Time CoV-Risk 02/10/2022 02/10/2022 02/21/2022 1:24 AM EDT documented as of this encounter Care Teams Rental Salesperson Relationship Specialty Start Date End Date Francesca Colindres [place], MD [address] [place] [address] PCP - General Adolescent Medicine 04/01/19 Marine Constantino MD, PhD [email or web address] 12/03/13 documented as of this encounter Additional Source Comments The information contained in this document represents components of the legal health record. It is not the complete legal health record.[facility]
--- OUTSIDE RECORDS SUMMARY | 2025-06-07 11:05 | XMS_ITS | Clinical Summary ---
Author Organization [facility] Address [address] [place] [address] Phone Care Team Providers Care Detonator Assembler Name Role Phone Unavailable Primary Care Provider [...] Relation Name Comments Seizures Cousin Other Father Alxeander Polyposis, foll owed by Andrew Manuel MD, [...] Vaccine (1 of 2 - Standard) 2019 COVID-19 Vaccine ( - 2023- season) 2024 DTaP,Tdap,and Td Vaccines (8 - Td or Tdap) 03/07/2025 03/07/2015, 03/07/2015, 11/17/2008, Additional history exists Influenza Vaccines (#1) 2025 11/01/20 16, 09/26/2015, 08/20/2012, Additional history exists Hepatitis B Vaccines Completed [...] A Vaccines Completed 12/25/2016, 12/05/19 16 Insurance [facility]
--- OUTSIDE RECORDS SUMMARY | 2025-06-07 11:05 | XMS_ITS | Encounter Summary ---
Author Organization [facility] Address [address] [place] [address] Phone Care Team Providers Care Aegis Console Operator Track Name Role Phone Emanuel Aragon MD Primary Care Provider Encounter Details Date Type Department Care Team (Late st Contact Info) Description 09/22/2017 Conversion Encounter Pediatrics at [facility] @ [address] [place] [address] Marine Constantino MD [address] [facility] [address] [place] [address] Social History Tobacco Use Types Packs/Day Years [...] on filedocumented in this encounter Care Teams Aegis Console Operator Track Relationship Specialty Start Date End Date Emanuel Aragon MD [address] [place] [address] [address] [place] [address] PCP - General 05/24/17 12/21/20 documented as of this encounter
--- OUTSIDE RECORDS SUMMARY | 2025-06-07 11:05 | XMS_ITS | Encounter Summary ---
Author Organization [facility] Address [address] [facility] [address] [place] [address] Phone Care Team Providers Care Immigration Inspector Name Role Phone Marine Constanitno MD, PhD Unavailable [phone] Francesca Colindres MD Primary Care Provi [facility] Encounter Details Date Type Department Care Team ([facility] st Contact Info) Description 04/05/2019 EpicOnHand Encounter [facility] Emergency Department [address] [place] [address] Cuco Steve MD, MPH [address] [place] [address] [email or web address] Social History Tobacco Use Types Packs/Day Years [...] documented as of this encounter Care Teams Immigration Inspector Relationship Specialty Start Date End Date Francesca Colindres MD [address] [place] [address] PCP - General Adolescent Medicine 04/01/19 Marine Constantino MD, PhD [email or web address] 12/03/13 documented as of this encounter Additional Source Comments The information contained in this document represents components of the legal health record. It is not the complete legal health record.[facility]
--- OUTSIDE RECORDS SUMMARY | 2025-06-07 11:05 | XMS_ITS | Clinical Summary ---
Author Organization [facility] Address [address] [place] [address] Care Team Providers Care Deputy Head Name Role Phone Pcp, No Primary Care [...] Date Smoking Tobacco: Some Days Cigarettes 0.1 4.6 Started: 2020 Tobacco Cessation:Ready to Q uit: [...] Comments Blood Pressure 111/75 12/30/2023 2:04 PM TEAMCENTER CONSULTANT Pulse 72 12/30/2023 2:04 PM TEAMCENTER CONSULTANT Temperature 36.8 C (98.2 F) 12/30/2023 2:04 PM TEAMCENTER CONSULTANT Respiratory Rate - - Oxygen Saturation 100% 12/30/2023 2:04 PM TEAMCENTER CONSULTANT Inhaled Oxygen Concentration - - Weight 57.4 kg (126 lb 9.6 oz) 12/30/2023 2:04 P M TEAMCENTER CONSULTANT Height 166 cm (5' 5.35) 03/19/2023 8:17 [...] 03/19/2023 COVID-19 vaccine series ( season) 2024 10/19/2021, 02/15/2021, 01/25/2021 Pap test for age 21-65 2024 Tetanus booster 03/07/2025 03/07/2015 Influenza Vaccine (#1) 2025 07/30/2022 Hepatitis B series for 19+ Completed 08/23, 08/23/2004, 2003, Additional history exists Meningococcal series for age 11-21 Aged Out 03/07/2015 No longer eligible based on patient's age to complete this topic Insurance [employer] Care Teams Deputy Head Relationship Specialty Start Date End Date Pcp, No . PCP - General 08/15/22
--- OUTSIDE RECORDS SUMMARY | 2025-06-07 11:05 | XMS_ITS | Encounter Summary ---
Author Organization [facility] Address [address] [place] [id number] Phone Care Team Providers Care Vamp Liner Name Role Phone Emanuel Aragon MD Primary Care Provider [phone] Encounter Details Date Type Department Care Team (Late st Contact Info) Description 06/18/2017 Conversion Encounter Drs. Alexander Bradley [address] [place] [address], [facility] [address] [place] [address] Emanuel Aragon MD [address] [place] [address] [address] [place] [address] Social History Tobacco Use Types Packs/Day Years [...] on filedocumented in this encounter Care Teams Vamp Liner Relationship Specialty Start Date End Date Emanuel Aragon MD [address] [place] [address] [address] [place] [address] PCP - General 05/24/17 12/21/20 documented as of this encounter
[2025-06-07 11:08] VITALS: BP 141/123; PULSE 61; RESP 18; TEMP 36.1; O2SAT 99; BMI 22.3
--- NOTE | 2025-06-07 11:26 | ED.NAVMDI ---
HPI - Nausea/Vomiting/Diarrhea General Chief complaint: Nausea/Vomiting Stated complaint: Nausea/Vomiting Time Seen by Provider: 06/07/25 11:06 History of Present Illness HPI Narrative: This 19-year-old female comes in reporting nausea, vomiting, and diarrhea that began this morning. She came in by ambulance and did have an IV started with fluids and Zofran. She arrives here with normal vital signs. She states that she has some lightheadedness. Prior to this she was feeling normal. She does not report any recent travel or exposures except she did use a new herbicide yesterday. Related Data Home Medications ?Medication ?Instructions ?Recorded ?Confirmed Ativan 09/12/23 04/13/25 acyclovir 500mg 09/12/23 04/13/25 dextroamphetamine-amphetamine ER 30 mg PO DAILY 09/12/23 06/07/25 30 mg 24hr capsule,extend release (Adderall XR) montelukast 10 mg tablet 10 mg PO DAILY 09/12/23 04/13/25 (Singulair) propranolol 10 mg tablet 10 mg PO Q12H 11/16/24 06/07/25 duloxetine 60 mg capsule,delayed 60 mg PO DAILY 01/19/25 06/07/25 release albuterol sulfate 90 mcg/actuation 2 puff inhalation Q6H PRN 04/13/25 06/07/25 aerosol inhaler fluticasone propionate 45 2 puff inhalation BID 04/13/25 04/13/25 mcg-salmeterol 21 mcg/actuation HFA inhaler (Advair HFA) Previous Rx's ?Medication ?Instructions ?Recorded lorazepam 1 mg tablet 0.5 - 1 mg (0.5 - 1 x 1 mg) PO TID 09/12/23 PRN #10 tabs ondansetron HCl 4 mg tablet 4 mg PO Q6H #10 tabs 06/07/25 Allergies Allergy/AdvReac Type Severity Reaction Status Date / Time shellfish Allergy Intermediate Abdominal Uncoded 04/13/25 17:09 Pain Review of Systems Status of ROS: Reports: 10 or more systems reviewed and unremarkable except as noted in History and below Narrative: Constitutional: No fevers, no weight gain or loss. Eyes: No discharge. No vision changes. HENT: No congestion, no sore throat, no ear pain. Cardiovascular: No chest pain, no palpitations. Respiratory: No shortness of breath, no wheezes, no cough. Gastrointestinal: No abdominal pain. Vomiting and diarrhea as described above. No blood in the stool or vomit. Genitourinary: No dysuria, no hematuria. Musculoskeletal: Normal range of motion. Skin: No rashes, no pruritis. Neurological: No dizziness, weakness, sensory change, speech change. Endo/Heme/Allergies: No bruising or bleeding. No polydipsia. Pysch: no suicidality, no anxiety, no insomnia. All other systems reviewed and are negative. [facility] Social History Smoking Status: Light tobacco smoker What tobacco products do you use: cigarettes Second hand tobacco smoke exposure: No How often do you have a drink containing alcohol: 2-4 times a month AUDIT-C Alcohol total score: 2 Non-prescribed substance use: marijuana (any form) Non-prescribed substance use details: Marijuana Daily service: No Exam Narrative: Exam Narrative: Constitutional: Well-developed, well-nourished, no acute distress. HEENT: Normocephalic, atraumatic. Neck: Normal range of motion. Nontender. Supple. Heart: Regular. No murmurs. Normal rate. Intact distal pulses. Lungs: Clear to auscultation. No chest discomfort. No wheezes, rhonchi, or rales. Abdomen: Normal bowel sounds. Nontender. No rebound tenderness. Genitalia: Deferred. Back: No midline tenderness. Normal range of motion. Extremities: Normal range of motion. No injury. Skin: Intact. No rash. Warm. No erythema or pallor. Neurologic: No altered sensation. No weakness. Alert and oriented. Psychiatric: No suicidality. No anxiety or depression. No insomnia. Nursing notes and vitals signs are reviewed. Const: Vital Signs, click to edit/add: Vital Signs - 24 hr 06/07/25 11:08 06/07/25 11:50 Temperature 97.0 F L Pulse Rate 73 Pulse Rate [Pulse Oximeter] 61 Respiratory Rate 18 Blood Pressure [Ri ght Upper Arm] 141/123 H Pulse Oximetry 99 98 Oxygen Delivery Me thod Room Air Course Vital Signs Vital signs: Initial Vital Signs Temperature 97.0 F L 06/07/25 11:08 Temperature Source Temporal Artery Scan 06/07/25 11:08 Pulse Rate 61 06/07/25 11:08 Respiratory Rate 18 06/07/25 11:08 Blood Pressure 141/123 H 06/07/25 11:08 Blood Pressure Mean 129 H 06/07/25 11:08 Pulse Oximetry 99 06/07/25 11:08 Oxygen Delivery Method Room Air 06/07/25 11:08 Vital Signs Temperature 97.0 F L 06/07/25 11:08 Pulse Rate 61 06/07/25 11:08 Respiratory Rate 18 06/07/25 11:08 Blood Pressure 141/123 H 06/07/25 11:08 Pulse Oximetry 99 06/07/25 11:08 Oxygen Delivery Method Room Air 06/07/25 11:08 Temperature 97.0 F L 06/07/25 11:08 Pulse Rate 73 06/07/25 11:50 Respiratory Rate 18 06/07/25 11:08 Blood Pressure 141/123 H 06/07/25 11:08 Pulse Oximetry 98 06/07/25 11:50 Oxygen Delivery Method Room Air 06/07/25 11:08 Medications Administered Medications: Discontinued Medications Generic Name Dose Route Start Last Admin Trade Name Freq PRN Reason Stop Dose Admin Sodium Chloride 1,000 mls @ 1,000 mls/hr 06/07/25 11:30 06/07/25 11:40 0.9 % Sodium Chloride 1000 Ml IV 06/07/25 12:29 1,000 mls/hr .Q1H WILFREDO Administration Ondansetron HCl 4 mg 06/07/25 11:25 06/07/25 11:43 Ondansetron 2 Mg/Ml Inj IVP 06/07/25 11:26 4 mg ONCE ONE Administration MDM - Nausea/Vomiting/Diarrhea MDM Narrative Medical decision making narrative: This patient comes in with vomiting and diarrhea symptoms that began today. She has received total of 2 L of normal saline and 2 separate doses of Zofran. She has not had any further vomiting or diarrhea. She does complain of a headache and did receive Toradol 15 mg intravenously. Her vital signs remained normal and her exam is otherwise normal. She feels sufficiently better and is okay to return home. I did provide a prescription for Zofran. Discharge Plan Discharge Clinical Impression: Gastroenteritis Patient Disposition: Home, Self-Care Condition: Improved Additional Instructions: Take medication as needed and indicated. Increase diet as tolerated. Follow up with MD or return if worsening. Prescriptions: New ondansetron HCl 4 mg tablet 4 mg PO Q6H Qty: 10 0RF No Action albuterol sulfate 90 mcg/actuation HFA aerosol inhaler 2 puff inhalation Q6H PRN fluticasone propion-salmeterol [Advair HFA] 45-21 mcg/actuation HFA aerosol inhaler 2 puff inhalation BID propranolol 10 mg tablet 10 mg PO Q12H montelukast [Singulair] 10 mg tablet 10 mg PO DAILY acyclovir 500mg 500 mg dextroamphetamine-amphetamine [Adderall XR] 30 mg capsule,extended release 24hr 30 mg PO DAILY Ativan 0.5 mg Patient Comments: PRN lorazepam 1 mg tablet 0.5 - 1 mg PO TID PRNQty: 10 0RF duloxetine 60 mg capsule,delayed release(DR/EC) 60 mg PO DAILY Follow Up/Referrals: Provider,Not a Local [Primary Care Provider, Family Practice] Stand Alone Forms: [facility] Info Instructions
[2025-06-07] MEDS: ONDANSETRON 2 MG/ML inj 4 MG IVP (11:43)
[2025-06-07 11:50] VITALS: PULSE 73; O2SAT 98
== END 2025-06-07 13:30 | disposition home or self-care (01) ==
PROVIDERS: Emergency Provider Emergency Medicine Emergency Medical Services
DX: K52.9 Noninfective gastroenteritis and colitis, unspecified (principal)
CPT/HCPCS: 96374; 96375; 99283; 99284; J1885; J2405; J7030

== ENCOUNTER 2025-08-19 13:38 | Emergency (ER) | payer BC, SELFPAY ==
[2025-08-19 13:53] VITALS: BP 137/86; PULSE 106; RESP 20; TEMP 36.7; O2SAT 98; BMI 20.1
--- NOTE | 2025-08-19 14:13 | ED.GENADULT ---
HPI - General Adult General Chief complaint: Abdominal Pain Stated complaint: lower abdominal pain Time Seen by Provider: 08/19/25 13:47 History of Present Illness HPI narrative: Arrives with complaints of diarrhea and low abdomen pain that started 4 days ago. Alert and oriented, ABCs intact. 19-year-old young woman presenting to the emergency department with concern of lower abdominal cramping associated with very frequent watery stools. This began about 4 days ago. She has not had a fever. No rash. 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 She did try drinking a bottle of Pepto and that did help but symptoms came back as soon as that wore off. No recent antibiotics. No recent travel. 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 Has felt a little lightheaded. Evaluated at school health and recommended to present to the emergency department. Related Data Home Medications ?Medication ?Instructions ?Recorded ?Confirmed montelukast 10 mg tablet 10 mg PO DAILY 09/12/23 08/19/25 (Singulair) duloxetine 60 mg capsule,delayed 60 mg PO DAILY 01/19/25 08/19/25 release albuterol sulfate 90 mcg/actuation 2 puff inhalation Q6H PRN 04/13/25 08/19/25 aerosol inhaler fluticasone propionate 45 2 puff inhalation BID 04/13/25 08/19/25 mcg-salmeterol 21 mcg/actuation HFA inhaler (Advair HFA) dextroamphetamine-amphetamine ER 40 mg PO QDAY 08/04/25 08/19/25 20 mg 24hr capsule,extend release (Adderall XR) duloxetine 30 mg capsule,delayed 30 mg PO QDAY 08/04/25 08/19/25 release propranolol 10 mg tablet 10 mg PO Q12H PRN 08/04/25 08/19/25 Previous Rx's ?Medication ?Instructions ?Recorded lorazepam 1 mg tablet 0.5 - 1 mg (0.5 - 1 x 1 mg) PO TID 09/12/23 PRN #10 tabs epinephrine 0.3 mg/0.3 mL 0.3 mg (0.3 mL) IM ONCE #2 ea 08/04/25 injection, auto-injector (EpiPen) mupirocin calcium 2 % topical cream 1 applic topical BID #15 grams 08/04/25 valacyclovir 500 mg tablet 1,000 mg (2 x 500 mg) PO QDAY 5 08/04/25 days #10 tabs tramadol 50 mg tablet 50 mg PO Q8H PRN pain #14 tabs 08/11/25 hyoscyamine sulfate 0.125 mg tablet 0.25 mg (2 x 0.125 mg) PO QID PRN 08/19/25 cramping #24 tabs Allergies Allergy/AdvReac Type Severity Reaction Status Date / Time shellfish derived Allergy Unknown Vomiting Verified 08/19/25 13:57 Review of Systems Status of ROS: Reports: 6 or more systems reviewed and unremarkable except as noted in History and below [facility] Medical History Shellfish allergy ?Z91.013 - Allergy to seafood (ICD-10) Herpes ?B00.9 - Herpesviral infection, unspecified (ICD-10) Impetigo ?L01.00 - Impetigo, unspecified (ICD-10) Foot pain ?M79.673 - Pain in unspecified foot (ICD-10) ADHD (attention deficit hyperactivity disorder) ?F90.9 - Attention-deficit hyperactivity disorder, unspecified type (ICD-10) Exercise-induced asthma ?J45.990 - Exercise induced bronchospasm (ICD-10) Anxiety ?F41.9 - Anxiety disorder, unspecified (ICD-10) Depression ?F32.A - Depression, unspecified (ICD-10) IUD (intrauterine device) in place ?Z97.5 - Presence of (intrauterine) contraceptive device (ICD-10) Chronic back pain ?M54.9 - Dorsalgia, unspecified (ICD-10) ?G89.29 - Other chronic pain (ICD-10) Migraine with aura ?G43.109 - Migraine with aura, not intractable, without status migrainosus (ICD-10) Family History Mother Von Willebrand disease Father Polyposis coli Paternal Grandfather Parkinsonism Social History What is your current living situation?: I presently have a place to live Problems where you live: no known problems In the past 12 months, utilities in danger of being shut off: no In past 12 months, lack of transportation kept you from medical appts, meetings, work, or getting things needed for daily living: no In the past 12 mos, have been you worried that your food would run out before you had money to buy more?: never true In the past 12 mos, the food you bought just didn't last and you didn't have money to buy more?: never true Smoking Status: Light tobacco smoker What tobacco products do you use: cigarettes Second hand tobacco smoke exposure: No How often do you have a drink containing alcohol: 2-4 times a month AUDIT-C Alcohol total score: 2 Non-prescribed substance use: marijuana (any form) Non-prescribed substance use details: Marijuana Daily How often does anyone, including family, friends and others, physically hurt you: decline to answer How often does anyone, including family, friends and others, insult or talk down to you: decline to answer How often does anyone, including family, friends and others, threaten you with harm: decline to answer How often does anyone, including family, friends and others, scream or curse at you: decline to answer service: No Exam Narrative: Exam Narrative: Pleasant. NAD. Skin is warm and dry. Well perfused. No extremity edema. She is breathing easily. Lungs appear to be clear. Heart in elevated rate and regular rhythm. Abdomen is soft and mildly generally uncomfortable. Without any peritoneal signs. Const: Vital Signs, click to edit/add: Vital Signs - 24 hr 08/19/25 13:53 Temperature 98.1 F Pulse Rate [Pulse Oximeter] 106 H Respiratory Rate 20 Blood Pressure [Ri ght Upper Arm] 137/86 Pulse Oximetry 98 Oxygen Delivery Me thod Room Air Documenting provider has reviewed patient's vital signs: yes Course Vital Signs Vital signs: Initial Vital Signs Temperature 98.1 F 08/19/25 13:53 Temperature Source Temporal Artery Scan 08/19/25 13:53 Pulse Rate 106 H 08/19/25 13:53 Respiratory Rate 20 08/19/25 13:53 Blood Pressure 137/86 08/19/25 13:53 Blood Pressure Mean 103 08/19/25 13:53 Pulse Oximetry 98 08/19/25 13:53 Oxygen Delivery Method Room Air 08/19/25 13:53 Vital Signs Temperature 98.1 F 08/19/25 13:53 Pulse Rate 106 H 08/19/25 13:53 Respiratory Rate 20 08/19/25 13:53 Blood Pressure 137/86 08/19/25 13:53 Pulse Oximetry 98 08/19/25 13:53 Oxygen Delivery Method Room Air 08/19/25 13:53 Temperature 98.1 F 08/19/25 13:53 Pulse Rate 106 H 08/19/25 13:53 Respiratory Rate 20 08/19/25 13:53 Blood Pressure 137/86 08/19/25 13:53 Pulse Oximetry 98 08/19/25 13:53 Oxygen Delivery Method Room Air 08/19/25 13:53 Medications Administered Medications: Discontinued Medications Generic Name Dose Route Start Last Admin Trade Name Freq PRN Reason Stop Dose Admin Hyoscyamine 0.25 mg 08/19/25 15:20 08/19/25 15:41 Hyoscyamine Sulfate 0.125 Mg Tab SUBLINGUAL 08/19/25 15:21 0.25 mg ONCE ONE Administration Sodium Chloride 1,000 mls @ 1,000 mls/hr 08/19/25 14:25 08/19/25 16:58 0.9 % Sodium Chloride 1000 Ml IV 08/19/25 15:24 Infused .Q1H ONE Infusion Ketorolac Tromethamine 30 mg 08/19/25 15:20 08/19/25 15:42 Ketorolac 30 Mg/Ml Inj IVP 08/19/25 15:21 30 mg ONCE ONE Administration Medical Decision Making MDM Narrative Medical decision making narrative: I think focus on some symptom relief here. Check labs for red flags. Does not have a kind of discomfort that I think would necessitate imaging at this point. Might be colitis or enteritis. Likely viral etiology. Does not sound to be particular food intolerance though there is an IBS history. Persistent duration though would collect stool culture looking for something like something like salmonella. Check C diff but I think this is low yield. IV initiated. Given normal saline as she is symptomatic, ketorolac and hyoscyamine Labs are reassuring. On reassessment is in improved. Does not seem to feel she really needs further hydration. Can tolerate oral intake. See patient discharge plan for further discussion Focus on hydration. 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 As long as not experiencing a fever or seeing blood in your stool, can take Imodium (loperamide) for diarrhea. Available [id number]. Follow instructions on the box. Usually it is 2 tabs/capsules initially and then 1 after each diarrheal stool. If stool culture come back positive, we will give you a call. Would not take loperamide in that case either. Sending in a prescription of hyoscyamine that might be helpful for abdominal cramping. Follow-up if diarrhea persisting for a week, developing fever, developing vomiting, unrelenting abdominal pain or worsening lightheadedness again. Medical Records Medical records reviewed: Yes I reviewed the patient's medical records Lab Data Lab results reviewed: Yes I reviewed the patient's lab results Labs: Lab Results 08/19/25 08/19/25 Range/Units 14:26 14:42 WBC 5.30 (4.50-11.00) K/uL RBC 4.25 (4.00-5.20) m/uL Hgb 13.1 (12.0-16.0) gm/dL Hct 37.9 (33.0-51.0) % MCV 89 (80-100) fL MCH 31 (26-34) pg MCHC 35 (32-36) gm/dL RDW Coeff of Ann 11.8 (11.5-15.5) % Plt Count 226 (140-440) K/uL Neut % (Auto) 70.5 (42.0-72.0) % Lymph % (Auto) 18.1 L (20-44) % [place] % (Auto) 8.5 (0.0-11.0) % Eos % (Auto) 2.5 (0.0-7.0) % Baso % (Auto) 0.4 (0.0-3.0) % Neut # (Auto) 3.74 (1.7-7.0) K/uL Lymph # (Auto) 1.00 (0.90-2.90) K/uL [place] # (Auto) 0.50 (0.00-0.90) K/UL Eos # (Auto) 0.13 (0.00-0.50) K/uL Baso # (Auto) 0.02 (0.00-0.30) K/uL Abs Immat Gran (auto) 0.00 (0.00-0.30) K/uL Imm/Tot Granulo (auto) 0.0 % Sodium 138 (135-149) mmol/L Potassium 3.9 (3.6-5.1) mmol/L Chloride 104 (96-114) mmol/L Carbon Dioxide 27 (20-32) mmol/L Anion Gap 7 (7-15) mEq/L BUN 11 (5-24) mg/dL Creatinine 0.6 (0.5-1.5) mg/dL Estimated Creat Clear 124.26 Estimated GFR 131 ml/min Glucose 98 (60-115) mg/dL Calcium 9.3 (8.4-10.6) mg/dL C-Reactive Protein 0.8 (0.5-1.0) mg/dL Stl C. diff Tox B Gene Negative (Negative) Stl C. diff [id number] PRESUMPTIVE NEGATIVE (Negative) Discharge Plan Discharge Clinical Impression: Diarrhea, Abdominal pain, colicky Patient Disposition: Home, Self-Care Condition: Improved Additional Instructions: Focus on hydration. 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 As long as not experiencing a fever or seeing blood in your stool, can take Imodium (loperamide) for diarrhea. Available [id number]. Follow instructions on the box. Usually it is 2 tabs/capsules initially and then 1 after each diarrheal stool. If stool culture come back positive, we will give you a call. Would not take loperamide in that case either. Sending in a prescription of hyoscyamine that might be helpful for abdominal cramping. Follow-up if diarrhea persisting for a week, developing fever, developing vomiting, unrelenting abdominal pain or worsening lightheadedness again. It matters if we matter... Prescriptions: New hyoscyamine sulfate 0.125 mg tablet 0.25 mg PO QID PRN (Reason: cramping) Qty: 24 0RF No Action albuterol sulfate 90 mcg/actuation HFA aerosol inhaler 2 puff inhalation Q6H PRN fluticasone propion-salmeterol [Advair HFA] 45-21 mcg/actuation HFA aerosol inhaler 2 puff inhalation BID tramadol 50 mg tablet 50 mg PO Q8H PRN (Reason: pain) Qty: 14 0RF dextroamphetamine-amphetamine [Adderall XR] 20 mg capsule,extended release 24hr 40 mg PO QDAY duloxetine 30 mg capsule,delayed release(DR/EC) 30 mg PO QDAY mupirocin calcium 2 % cream 1 applic topical BID Qty: 15 0RF valacyclovir 500 mg tablet 1,000 mg PO QDAY 5 Days Qty: 10 1RF epinephrine [EpiPen] 0.3 mg/0.3 mL auto-injector 0.3 mg IM ONCE Qty: 2 0RF Rx Instructions: as a single dose; may repeat once propranolol 10 mg tablet 10 mg PO Q12H PRN montelukast [Singulair] 10 mg tablet 10 mg PO DAILY lorazepam 1 mg tablet 0.5 - 1 mg PO TID PRNQty: 10 0RF duloxetine 60 mg capsule,delayed release(DR/EC) 60 mg PO DAILY Follow Up/Referrals: Provider,Not a Local [Primary Care Provider, Family Practice] Stand Alone [facility]: [facility] Info Instructions
[2025-08-19 14:48] LABS: Hematocrit* 37.9 % (33.0-51.0); Hemoglobin* 13.1 gm/dL (12.0-16.0); Immature Granulocytes Abs Auto 0.00 K/uL (0.00-0.30); Immature Granulocytes Pct Auto 0.0 %; Mean Corpuscular HGB Conc 35 gm/dL (32-36); Mean Corpuscular Hemoglobin 31 pg (26-34); Mean Corpuscular Volume 89 fL (80-100); RDW Coefficient of Variation % 11.8 % (11.5-15.5); Red Blood Count* 4.25 m/uL (4.00-5.20); White Blood Count* 5.30 K/uL (4.50-11.00)
[2025-08-19 14:51] LABS: Lymphocytes Absolute Auto 1.00 K/uL (0.90-2.90); Slide Review Reflex No
[2025-08-19 15:07] LABS: Chloride* 104 mmol/L (96-114); Potassium* 3.9 mmol/L (3.6-5.1); Sodium* 138 mmol/L (135-149)
[2025-08-19 15:11] LABS: Anion Gap 7 mEq/L (7-15); Blood Urea Nitrogen* 11 mg/dL (5-24); Calcium* 9.3 mg/dL (8.4-10.6); Carbon Dioxide* 27 mmol/L (20-32); Creatinine* 0.6 mg/dL (0.5-1.5); Est. Creatinine Clearance* 124.26; Estimated Glomerular Filt Rate 131 ml/min; Glucose* 98 mg/dL (60-115)
[2025-08-19] MEDS: HYOSCYAMINE SULFATE 0.125 MG TAB 0.25 MG SUBLINGUAL (15:41)
[2025-08-19 16:23] LABS: C.Difficile Negative (Negative); CDIFFEPI 027 PRESUMPTIVE NEGATIVE (Negative)
== END 2025-08-19 17:03 | disposition home or self-care (01) ==
PROVIDERS: Emergency Provider Family Medicine
DX: R19.7 Diarrhea, unspecified (principal); R10.9 Unspecified abdominal pain; R10.84 Generalized abdominal pain
CPT/HCPCS: 36415; 80048; 83789; 85025; 86140; 87045; 87046; 87427; 87493; 99283; 99284; A9270; J1885; J7030

== ENCOUNTER 2025-08-22 14:25 | Outpatient (CLI) | payer BC, SELFPAY ==
--- NOTE | 2025-08-22 14:30 | MR_ITS ---
[facility] [address] [facility] [address] Phone:?[phone] Fax:?[phone] Referring Physician Information: Mateo Ruiz M.D. [address] [facility] [address] Phone:?[phone] Fax:?[phone] Patient:Prudencio Reece D.O.B:?2005 Sex:?Female Phone:?[phone] [facility] MRN:?[id number] Exam Date:?08/22/2025 EXAM: MRI OF THE LEFT ANKLE, HINDFOOT, AND MIDFOOT CLINICAL INFORMATION: The patient is a 19-year-old with left ankle, hindfoot, and midfoot pain. Evaluate for poorly healed fracture. PRIOR SURGERY: None reported. COMPARISON STUDIES: No prior studies are available for comparison. TECHNICAL INFORMATION: Imaging was performed on a high-field, 1.5 Bee MR scanner. Axial proton-density and axial STIR imaging of the left ankle, hindfoot, and midfoot was performed in addition to coronal T1, T2, and STIR imaging. Sagittal proton-density and T2 imaging was also performed. FINDINGS: Osseous structures: Fat-suppressed imaging of the distal tibia and distal fibula shows no evidence for marrow edema or cortical injury. There is no evidence for fracture. No evidence for acute bony abnormality of the talus or calcaneus can be seen. No acute bony injuries of the midfoot structures are present. There are no definite abnormalities in midfoot alignment. A chronic-appearing, incompletely healed fracture along the medial aspect of the base of the first metatarsal can be seen at the site of the patient's symptoms as marked by a capsule. The findings are noted on axial series 8 image 12 and on axial series 7 image 12. The findings may represent a chronic ununited fracture in this location measuring approximately 7 mm in greatest dimension. CT scanning may be helpful in further evaluation. No evidence for acute bony injury of the first metatarsal base can be seen. There is marrow edema along the lateral aspect of the base of the second metatarsal seen on axial series 8 image 11, in keeping with reactive edema, bony contusion, or stress change. The third, fourth, and fifth metatarsal bases are within normal limits. Os trigonum: No os trigonum is identified. No definite MR signs of posterior impingement are seen. Tarsal coalition: No calcaneonavicular, talocalcaneal or cubonavicular coalition is present. Tibiotalar joint: Effusion: Mild. Ganglion cyst: None. Osteochondral surfaces: No definite chondral or osteochondral injury can be seen along the articular surfaces of the talar dome or tibial plafond. Loose bodies: None. Subtalar joint: Effusion: Mild. Articular cartilage: No chondral or osteochondral abnormality identified. Tarsal joints: Talonavicular: A mild talonavicular joint effusion is present. No injuries along the articular surfaces are seen. Calcaneocuboid: Within normal limits. Naviculocuneiform: Within normal limits. Ligamentous structures: Syndesmotic Ligaments: The lateral syndesmotic ligaments appear intact. No widening of the syndesmosis can be seen. Lateral Ligaments: Chronic appearing thickening and irregularity of the anterior talofibular, calcaneofibular, and posterior talofibular ligaments can be seen, in keeping with a prior inversion sprain. No impinging mass within the lateral gutter is present. Medial Ligaments: Chronic residual changes of a prior incomplete deltoid sprain are noted. Spring Ligaments: Intact. Sinus Tarsi: Intact cervical and interosseous ligaments. Flexor tendons: Posterior tibial: Tendinosis and tenosynovitis of the posterior tibialis tendon can be seen. There is no evidence for well-defined tearing. Flexor digitorum longus: Normal. Flexor hallucis longus: Normal, without convincing pathologic tenosynovitis. Peroneus longus and brevis: Normal, without tendinopathy, tenosynovitis or tear. No injuries to the peroneal retinaculum can be seen. Extensor tendons: Tibialis anterior: Mild tendinosis and tenosynovitis of the anterior tibialis tendon can be seen. There is no evidence for well-defined tearing. Extensor hallucis longus: Normal. Extensor digitorum longus: Normal. Achilles tendon: No tendinopathy or tear. No retrocalcaneal bursitis. Plantar aponeurosis: No evidence for plantar fasciitis or plantar fascia tearing. Neurovascular structures: No definite neurovascular abnormalities are seen. The tarsal tunnel is within normal limits. CONCLUSION: 1. Suspected, chronic-appearing, ununited fracture along the medial aspect of the base of the first metatarsal as described above. CT scanning may be helpful in further evaluation if clinically warranted. 2. Reactive edema versus contusion or stress change involving the lateral aspect of the second metatarsal base. 3. Chronic appearing sprain injuries of the lateral ligamentous complex and deltoid complex. 4. Tendinosis and tenosynovitis of the anterior and posterior tibialis tendons. No evidence for tendon rupture is seen. 5. No definite neurovascular abnormalities are present. [facility] Electronically signed on 08/23/2025 8:19:00 AM by Balta Hogan M.D.
== END 2025-08-22 14:26 | disposition home or self-care (01) ==
LOC: MRI 14:25
PROVIDERS: Visit Provider Internal Medicine
DX: M25.572 Pain in left ankle and joints of left foot (principal); S92.312A Displaced fracture of first metatarsal bone, left foot, initial encounter for closed fracture; S93.422A Sprain of deltoid ligament of left ankle, initial encounter; M65.971 Unspecified synovitis and tenosynovitis, right ankle and foot
CPT/HCPCS: 73718

== ENCOUNTER 2025-09-21 15:50 | Outpatient (CLI) | payer BC, SELFPAY ==
--- NOTE | 2025-09-21 16:00 | CRLHL7_ITS ---
For Patients: As a result of the Century Cures Act, medical imaging exams and procedure reports are released immediately into your electronic medical record. You may view this report before your referring provider. If you have questions, please contact your health care provider. Indication: PAIN. MIDFOOT TO LOWER ANKLE Technique: Noncontrast CT left foot Please note that all CT scans at this facility use dose modulation, iterative reconstruction, and/or weight-based dosing when appropriate to reduce radiation dose to as low as reasonably achievable. Comparison: MRI 08/22/2025, x-rays 08/04/2025 Findings: There is a chronic nonunited ossicle adjacent to dorsomedial base of the 1st metatarsal adjacent to the 1st tarsometatarsal joint measuring 4.3 millimeters. An additional nonunited ossicle is present adjacent to the inferomedial base of the 3rd metatarsal extending to the 3rd tarsometatarsal joint measuring 7.6 millimeters. Small chronic ossicles are located dorsal to the 4th tarsometatarsal joint measuring up to 2.2 millimeters. The midfoot alignment is maintained. No hindfoot coalition. Intact ankle mortise. Lateral malleolus and medial malleolus intact. 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 Please note that all CT scans at this facility use dose modulation, iterative reconstruction, and/or weight-based dosing when appropriate to reduce radiation dose to as low as reasonably achievable. Dictated by Néstor Dickey MD @ 09/22/2025 8:30:38 AM (Electronically Signed)
== END 2025-09-21 15:51 | disposition home or self-care (01) ==
LOC: CT 15:51
PROVIDERS: Visit Provider Podiatrist
DX: M79.672 Pain in left foot (principal); S92.902A Unspecified fracture of left foot, initial encounter for closed fracture
CPT/HCPCS: 73700